=== PATIENT | female | born 1940 | race Caucasian/White ===

== ENCOUNTER 2016-06-26 03:49 | Inpatient (IN) ==
--- NOTE | 2016-06-25 14:53 | EKG Report ---
Test Performed on : 06/25/2016 2:36:13 PM Test Reason : PAT Blood Pressure : / mmHG Vent. Rate : 058 BPM Atrial Rate : 058 BPM P-R Int : 152 ms QRS Dur : 092 ms QT Int : 478 ms P-R-T Axes : 035 053 055 degrees QTc Int : 469 ms Sinus bradycardia. Otherwise normal ECG When compared with ECG of 08-FEB-2015 07:28, QRS duration has increased Confirmed by Lilia HERRERA, Torres Escalera ([id number]) on 06/26/2016 3:18:53 PM
[2016-06-25 15:08] LABS: HEMATOCRIT 38.4 % (37.0-47.0); HEMOGLOBIN 12.8 g/dL (12.0-16.0); MCH 36.9 PG (27-31); MCHC 33.3 g/dL (33-37); MCV 110.7 FL (81-99); MPV 9.7 FL (7.4-10.4); RBC 3.47 XMIL (4.2-5.4)
[2016-06-25 15:20] LABS: AGAP 11; BUN 14 mg/dL (8-22); CALCIUM 9.2 mg/dL (8.8-10.2); CHLORIDE 103 mmol/L (98-107); COSMO 276; POTASSIUM 4.4 mmol/L (3.5-5.1); SODIUM 138 mmol/L (136-145); TCO2 24 mmol/L (25-35)
[2016-06-26] MEDS ORDERED: LR 1,000 ML ONE (06:04)
[2016-06-26] MEDS ORDERED: KEFZOL 1 GM/D5W 1 GM/50 ML IVPB ONE (06:04)
[2016-06-26] MEDS ORDERED: HEPARIN ONE (06:34)
[2016-06-26] MEDS ORDERED: MARCAINE 0.25% PF/EPI 1:200,000 ONE (06:34)
[2016-06-26] MEDS ORDERED: NS 1,000 ML ONE ×3 (06:34→09:41)
[2016-06-26] MEDS ORDERED: KEFZOL ONE (06:34)
[2016-06-26] MEDS ORDERED: MORPHINE ONE ×2 (09:15→09:41)
[2016-06-26] MEDS ORDERED: DIPRIVAN 1% ONE (09:16)
[2016-06-26] MEDS ORDERED: NEOSTIGMINE ONE (09:19)
[2016-06-26] MEDS ORDERED: ATROPINE ONE (09:20)
[2016-06-26] MEDS ORDERED: ZOFRAN ONE (09:20)
[2016-06-26] MEDS ORDERED: NORCURON ONE (09:20)
[2016-06-26] MEDS ORDERED: EPHEDRINE ONE (09:20)
[2016-06-26] MEDS ORDERED: NEO-SYNEPHRINE ONE (09:20)
[2016-06-26] MEDS ORDERED: XYLOCAINE-MPF 2% ONE (09:21)
[2016-06-26] MEDS ORDERED: QUELICIN (DOSE) ONE (09:21)
[2016-06-26] MEDS ORDERED: DECADRON ONE (09:21)
[2016-06-26] MEDS ORDERED: NS 250 ML ONE (09:21)
[2016-06-26 09:49] LABS: URINE MICRO REVIEW NEEDED? NO; URINE SOURCE CATH
[2016-06-26 10:08] LABS: BILIRUBIN URINE NEGATIVE (NEGATIVE); BLOOD URINE NEGATIVE (NEGATIVE); COLOR STRAW; GLUCOSE URINE NEGATIVE (NEGATIVE); LEUKOCYTES URINE NEGATIVE (NEGATIVE); NITRITE URINE NEGATIVE (NEGATIVE); PH URINE 5.5; PROTEIN URINE NEGATIVE (NEGATIVE); SP GRAVITY URINE 1.005; TURBIDITY URINE CLEAR (CLEAR); UROBILINOGEN URINE NORMAL (NORMAL)
[2016-06-26 10:09] LABS: UR EPITHELIAL CELLS <10 /HPF (<10); URINE BACTERIA NEGATIVE /HPF; URINE RBC <10 /HPF (<10); URINE WBC <10 /HPF (<10)
[2016-06-26] MEDS ORDERED: DEMEROL ONE (10:28)
--- NOTE | 2016-06-26 11:23 | OPERATIVE NOTE ---
PROCEDURE DATE: 06/26/2016 DATE OF SURGERY: 06/26/2016. PROCEDURES PERFORMED: 1. Right femoral artery access with ultrasound guidance. 2. Percutaneous right common iliac balloon angioplasty and stent using an 8 x 40 Smart Control stent. 3. Open femoral-femoral graft revision with balloon angioplasty (9 x 40) times two. SURGEON: Cody Guan MD. REPORTING PROCESS CONSULTANT: Negro Arce RN. PREOPERATIVE DIAGNOSES: 1. Rest pain, left lower extremity. 2. Femoral-femoral graft stenosis. 3. Right common iliac artery stenosis. INDICATIONS: A 76-year-old with severe peripheral vascular disease of the left leg, rest pain. She has evidence of a right common iliac stenosis and serial femoral-femoral graft stenoses. DESCRIPTION OF PROCEDURE: Satisfactory general endotracheal anesthesia achieved. The abdomen and legs were prepped and draped in a sterile fashion. We used an ultrasound to identify the right femoral artery. We used a Seldinger technique, passed a Glidewire followed by a 6-Tunisian sheath up the [place] artery. With some manipulation, we were able to traverse the right common iliac stenosis, however it was with some difficulty. When we got into the [place] aorta, we shot a retrograde arteriogram showing a severe stenosis at the takeoff of the right common iliac. The left common iliac is occluded. So, we used a 7 x 2 balloon to pre dilate the severe stenosis. After doing that, it was improved, but absolutely not normal. So, we chose an 8 x 40 Smart Control stent and laid it across the stenosis. We then post dilated that with a 9 x 40 balloon. This significantly improved the stenosis at the takeoff of the right common iliac. We then attempted to pull our sheath back in order to try to gain access to the femoral-femoral graft, but we could not do that due to the proximity of the end of the sheath to the takeoff of the fem-fem graft. So, we aborted further attempts at that. We made a vertical incision, dissected down to where the our sheath had been into the artery, and it turned out it was into the takeoff of the profunda. We closed that with a single 5-0 Prolene lnebav-bo-lhmff stitch. We identified the takeoff of the femoral-femoral graft and directly accessed it with a needle and then passed a Glidewire which went across the stenoses. We then chose a 9 x 4 balloon to balloon the stenoses in the femoral-femoral graft. I failed to mention at the beginning of this procedure that we gave the patient 5000 units of heparin. So, we ballooned the stenoses in the femoral-femoral graft and the residual showed resolution of the stenoses in the graft. So, we were quite satisfied with the resolution of the proximal iliac stenosis and then the serial stenoses within the fem-fem graft. We placed a 5-0 Prolene stitch where we had placed the sheath into the graft, and when we pulled the sheath out we closed that with a 5-0 Prolene stitch. Hemostasis was satisfactory. We irrigated the right groin wound with Kefzol-impregnated saline. We then closed the subcutaneous tissue with a running 2-0 Polysorb. We placed 3-0 Polysorbs in the subcutaneous tissue as a second layer and then closed the skin with a 4-0 Polysorb subcuticular stitch. We did anesthetize the skin with 0.25 Marcaine with epinephrine. She tolerated it well, was sent to the recovery room in satisfactory condition. cc: Cody Guan MD
[2016-06-26] MEDS ORDERED: ZOFRAN IV PRN (14:07)
[2016-06-26] MEDS: MORPHINE IV PRN ×3 (14:42→23:39)
[2016-06-26] MEDS: NS 1,000 ML IV SCH (14:43)
[2016-06-26] MEDS ORDERED: KEFZOL 1 GM/D5W 1 GM/50 ML IVPB IV ONE (16:22)
[2016-06-26] MEDS ORDERED: SEROQUEL PO SCH (21:00)
[2016-06-26] MEDS ORDERED: TENORMIN PO SCH (21:00)
[2016-06-26] MEDS: NEURONTIN PO SCH (21:01)
[2016-06-26] MEDS: NORCO-10 PO PRN (21:02)
[2016-06-26] MEDS: PATIENT'S OWN MED PO SCH (21:03)
[2016-06-26] MEDS: PERIDEX MT SCH (21:03)
[2016-06-27] MEDS: NS 1,000 ML IV SCH (03:51)
[2016-06-27] MEDS: MORPHINE IV PRN ×2 (03:53→08:49)
[2016-06-27 05:40] LABS: BASO% 0.2 % (0.0-0.8); EOS# 0.01 X1000 (0.0-0.7); EOS% 0.2 % (0.0-10.0); HEMATOCRIT 25.3 % (37.0-47.0); HEMOGLOBIN 7.9 g/dL (12.0-16.0); LYMPH# 0.96 X1000 (1.2-3.4); LYMPH% 19.6 % (20.5-51.1); MCH 35.9 PG (27-31); MCHC 31.2 g/dL (33-37); MONO# 0.56 X1000 (0.11-0.59); MONO% 11.4 % (1.7-9.3); MPV 9.5 FL (7.4-10.4); NEUT% 68.6 % (42.2-75.2); PLT 137 X1000 (130-400)
[2016-06-27 05:57] LABS: AGAP 9; BUN 13 mg/dL (8-22); CALCIUM 7.6 mg/dL (8.8-10.2); CHLORIDE 108 mmol/L (98-107); COSMO 280; SODIUM 140 mmol/L (136-145); TCO2 23 mmol/L (25-35)
[2016-06-27] MEDS ORDERED: NS 1,000 ML IV SCH (07:05)
[2016-06-27 07:08] LABS: MANUAL DIFF NEEDED? NO
[2016-06-27] MEDS: PATIENT'S OWN MED PO SCH (08:42)
[2016-06-27] MEDS: PERIDEX MT SCH (08:42)
[2016-06-27] MEDS: NEURONTIN PO SCH (08:43)
[2016-06-27] MEDS ORDERED: IMURAN PO SCH (09:00)
[2016-06-27] MEDS ORDERED: FERROUS SULFATE PO SCH (09:00)
[2016-06-27] MEDS: NORCO-10 PO PRN (14:02)
[2016-06-27 15:45] VITALS: BP 106/54
== END 2016-06-27 16:43 | disposition home or self-care (01) ==
LOC: SURHOLD 03:49 → 4N 14:06
PROVIDERS: ADMIT Surgery; ATTEND Surgery

== ENCOUNTER 2019-01-06 10:53 | Inpatient (IN) ==
--- NOTE | 2019-01-01 14:38 | EKG Report ---
Test Performed on : 01/01/2019 2:33:17 PM Test Reason : PAT Blood Pressure : / mmHG Vent. Rate : 091 BPM Atrial Rate : 093 BPM P-R Int : 000 ms QRS Dur : 072 ms QT Int : 376 ms P-R-T Axes : 000 036 083 degrees QTc Int : 462 ms Accelerated Junctional rhythm. Minimal voltage criteria for LVH, may be normal variant Abnormal ECG When compared with ECG of 17-DEC-2017 14:28, Junctional rhythm. has replaced Sinus rhythm. Criteria for Septal infarct are no longer present Unconfirmed Result
[2019-01-01 14:55] LABS: BASO# 0.03 X1000 (0.0-0.2); BASO% 0.4 % (0.0-0.8); EOS# 0.21 X1000 (0.0-0.7); EOS% 2.6 % (0.0-10.0); HEMOGLOBIN 14.2 g/dL (12.0-16.0); IMM GRAN# 0.06 X1000 (0.0-0.04); IMM GRAN% 0.7 % (0.0-0.5); LYMPH# 0.73 X1000 (1.2-3.4); MCH 30.7 PG (27-31); MCHC 30.9 g/dL (33-37); MCV 99.6 FL (81-99); MONO# 0.67 X1000 (0.11-0.59); MONO% 8.2 % (1.7-9.3); MPV 9.4 FL (7.4-10.4); NEUT# 6.45 X1000 (1.4-6.5); NEUT% 79.1 % (42.2-75.2); PLT 246 X1000 (130-400); RBC 4.62 XMIL (4.2-5.4); RDW 15.6 % (11.5-14.5); WBC 8.15 X1000 (4.8-10.8)
[2019-01-01 15:10] LABS: CALCIUM 9.3 mg/dL (8.8-10.2); POTASSIUM 4.7 mmol/L (3.5-5.1)
[2019-01-06] MEDS ORDERED: XYLOCAINE-MPF 2% ONE (11:07)
[2019-01-06] MEDS ORDERED: DIPRIVAN 1% ONE (11:07)
[2019-01-06] MEDS ORDERED: ZOFRAN ONE (11:07)
[2019-01-06] MEDS ORDERED: PEPCID ONE (11:29)
[2019-01-06] MEDS ORDERED: KEFZOL 1 GM/D5W 1 GM/50 ML IVPB ONE (11:29)
[2019-01-06] MEDS ORDERED: REGLAN ONE (11:29)
[2019-01-06] MEDS ORDERED: LR 1,000 ML ONE (11:29)
[2019-01-06] MEDS ORDERED: HEPARIN ONE ×2 (12:28)
[2019-01-06] MEDS ORDERED: NS 2,000 ML ONE (12:29)
[2019-01-06] MEDS ORDERED: DECADRON ONE (12:50)
[2019-01-06] MEDS ORDERED: NEO-SYNEPHRINE ONE (12:59)
[2019-01-06] MEDS ORDERED: EPHEDRINE ONE (13:13)
[2019-01-06] MEDS ORDERED: HEPARIN (DOSE) ONE (13:40)
[2019-01-06] MEDS ORDERED: KEFZOL ONE (13:50)
[2019-01-06] MEDS ORDERED: NS 500 ML ONE ×2 (13:50→16:23)
[2019-01-06] MEDS ORDERED: QUELICIN (DOSE) ONE (14:04)
[2019-01-06] MEDS ORDERED: ALBUMIN 25% IV ONE (14:15)
[2019-01-06] MEDS ORDERED: OFIRMEV 1000 MG/ISOTONIC SOLN 1,000 MG/100 ML BOTTLE ONE (14:43)
[2019-01-06] MEDS ORDERED: MARCAINE 0.5% ONE (14:53)
[2019-01-06] MEDS ORDERED: NS 1,000 ML ONE (15:19)
[2019-01-06] MEDS ORDERED: ZOFRAN IV PRN (18:06)
[2019-01-06] MEDS ORDERED: DILAUDID IV PRN (18:06)
[2019-01-06] MEDS: NS 1,000 ML IV SCH ×2 (18:16→21:38)
[2019-01-06 19:02] LABS: HEMATOCRIT 45.6 % (37.0-47.0); MCH 30.1 PG (27-31); MCHC 32.9 g/dL (33-37); MCV 91.4 FL (81-99); MPV 9.6 FL (7.4-10.4); RBC 4.99 XMIL (4.2-5.4); RDW 16.8 % (11.5-14.5); WBC 8.79 X1000 (4.8-10.8)
[2019-01-06 19:26] LABS: URINE SOURCE CATH
[2019-01-06 19:32] LABS: BILIRUBIN URINE NEGATIVE (NEGATIVE); BLOOD URINE MODERATE (NEGATIVE); COLOR YELLOW; GLUCOSE URINE NEGATIVE (NEGATIVE); KETONE URINE NEGATIVE (NEGATIVE); LEUKOCYTES URINE NEGATIVE (NEGATIVE); NITRITE URINE NEGATIVE (NEGATIVE); PROTEIN URINE 30 mg/dL (NEGATIVE); TURBIDITY URINE CLEAR (CLEAR); UROBILINOGEN URINE NORMAL (NORMAL)
[2019-01-06 19:43] LABS: UR EPITHELIAL CELLS <10 /HPF (<10); URINE BACTERIA NEGATIVE /HPF; URINE WBC <10 /HPF (<10)
[2019-01-06 19:48] LABS: URINE YEAST NONE SEEN
[2019-01-06] MEDS: PLETAL PO SCH (20:04)
[2019-01-06] MEDS: KEFZOL 1 GM/D5W 1 GM/50 ML IVPB IV SCH (20:05)
[2019-01-06] MEDS: NORCO-10 PO PRN (20:05)
--- NOTE | 2019-01-06 22:05 | OPERATIVE NOTE ---
PROCEDURE DATE: 01/06/2019 PROCEDURE PERFORMED: 1. Left lower extremity arteriogram via femoral-femoral percutaneous access, with ultrasound guidance. 2. Open left common femoral to superficial femoral interposition bypass graft. SURGEON: Cody Guan MD. PENSION ADMINISTRATOR: Dimple. PREOPERATIVE DIAGNOSIS: Left foot rest ischemia. POSTOPERATIVE DIAGNOSIS: Left foot rest ischemia with occluded left proximal superficial femoral artery. DESCRIPTION OF PROCEDURE: Satisfactory general anesthesia was achieved. The right groin, lower abdomen, left groin, and left leg were prepped and draped in a sterile fashion. We first attempted access to the fem-fem graft near the left common femoral anastomosis, but we lost access, developed a hematoma, and aborted further attempts there. We then went toward the right on the femoral-femoral graft and under ultrasound guidance, accessed it and passed a 6-Bulgarian sheath. We then shot a femoral-femoral arteriogram. This showed occlusion of the proximal left SFA. There was outflow via the deep femoral. There was collateralization to the SFA with retrograde filling back to about 3 cm from the tip of the femoral-femoral bypass anastomosis. We then attempted access distally in the SFA, but we could not stay inside the artery, in hopes that we could go retrograde up the artery and across the occlusion, but we never could gain access in the distal SFA due to the calcification. So, we then decided to cut down on the artery. Where we had made a puncture in the mid SFA, we placed a 6-0 Prolene stitch to close the hole in the artery there. We evacuated the hematoma and then exposed the artery all the way up to the anastomosis where the fem-fem graft anastomosed. We then gave the patient 5000 units of heparin. We at first thought we could use a bovine patch, but after opening the artery, it became evident we would have to use an interposition graft. After the heparin had circulated for 5 minutes, we clamped the fem- fem graft. We then incised the superficial femoral artery and extended it with the Agrcia scissors. We came all the way back to the toe of the fem-fem graft. We extended our incision distally until we reached what I felt to be a fairly soft portion of the SFA, and so we obtained a 6 mm PTFE graft to use it as an interposition. We used a CV5 stitch to sew the graft to the toe of the femoral-femoral graft, right at the anastomosis to the common femoral. We flushed the graft and hemostasis around the graft was satisfactory. We then cut the graft to the appropriate length to where we had finished opening the SFA, and once again constructed this anastomosis to the artery using a CV6 Darien suture. Flow was then established. A couple of extra stitches were used to achieve complete hemostasis around the anastomoses. We did use some Ultrafoam as well. I then shot a completion arteriogram through the fem-fem percutaneous access, and this showed flow down the new interposition graft, down the SFA, through the popliteal, and had 2 vessel [address] all the way to the foot. We did not feel that any further intervention was indicated. We irrigated out the wound with Kefzol impregnated saline. We closed the muscle over the graft with a running 2-0 Polysorb stitch, loosely approximating the muscle, and then used interrupted 3-0 Polysorb to the subcutaneous tissue. We closed the skin with maximilian. I attempted to use the Mynx on the fem- fem percutaneous access, but it did not function well, so we simply removed the sheath and held pressure for 5 minutes. This provided adequate hemostasis at the puncture site in the femoral- femoral graft. A pressure dressing was applied there. A regular island dressing was applied over the left femoral incision. She tolerated the procedure satisfactorily. Estimated blood loss was 900 mL. She was sent to the recovery room in stable condition. cc: Cody Guan MD
[2019-01-07] MEDS: NORCO-10 PO PRN ×3 (00:17→20:29)
[2019-01-07] MEDS: KEFZOL 1 GM/D5W 1 GM/50 ML IVPB IV SCH ×3 (04:02→20:30)
[2019-01-07] MEDS: NS 1,000 ML IV SCH ×2 (05:08→17:51)
[2019-01-07 06:28] LABS: CALCIUM 8.2 mg/dL (8.8-10.2); CREATININE 1.1 mg/dL (0.5-0.9); POTASSIUM 4.9 mmol/L (3.5-5.1)
[2019-01-07 07:47] LABS: HEMATOCRIT 37.2 % (37.0-47.0); HEMOGLOBIN 12.5 g/dL (12.0-16.0); MCH 30.2 PG (27-31); MCHC 33.6 g/dL (33-37); MCV 89.9 FL (81-99); MPV 9.5 FL (7.4-10.4); RBC 4.14 XMIL (4.2-5.4); WBC 9.13 X1000 (4.8-10.8)
[2019-01-07] MEDS: PLETAL PO SCH ×2 (08:47→20:29)
[2019-01-07] MEDS: TOPROL XL PO SCH (08:48)
[2019-01-07] MEDS: IMURAN PO SCH (08:49)
[2019-01-07] MEDS: XYLOCAINE 5% OINT TOP PRN ×2 (08:52→20:30)
--- NOTE | 2019-01-07 09:05 | GENERAL SURGERY PROGRESS NOTE ---
DATE: 01/07/2019 Ms. Navarrete is doing extremely well. She says she can feel her foot better today, it is not numb like it has been. She can tell it is getting blood. She is afebrile with heart rate 85, blood pressure 114/70. Her bandage is taken off. There is no evidence of hematoma and had a little oozing from the skin edge of her incision. Her wound was cleaned with peroxide, cleaned with alcohol, and then redressing in a sterile fashion. Today, her white count is 9000, hemoglobin 12.5, hematocrit 37. BUN 23, creatinine 1.1. I am pleased with her progress. Will keep her on IV antibiotics today and hopefully we can send her home tomorrow if all is well and there is no evidence of further bleeding. cc: Cody Guan MD
[2019-01-08] MEDS: NORCO-10 PO PRN (00:03)
[2019-01-08] MEDS: NS 1,000 ML IV SCH ×2 (03:18→12:31)
[2019-01-08] MEDS: KEFZOL 1 GM/D5W 1 GM/50 ML IVPB IV SCH ×2 (03:47→12:47)
[2019-01-08 08:40] LABS: BASO# 0.01 X1000 (0.0-0.2); BASO% 0.2 % (0.0-0.8); EOS# 0.26 X1000 (0.0-0.7); IMM GRAN# 0.05 X1000 (0.0-0.04); IMM GRAN% 0.8 % (0.0-0.5); LYMPH# 1.04 X1000 (1.2-3.4); MCH 30.4 PG (27-31); MCHC 32.4 g/dL (33-37); MCV 93.7 FL (81-99); MONO# 0.65 X1000 (0.11-0.59); MPV 9.7 FL (7.4-10.4); NEUT# 4.47 X1000 (1.4-6.5); PLT 150 X1000 (130-400); RBC 3.95 XMIL (4.2-5.4); WBC 6.48 X1000 (4.8-10.8)
[2019-01-08 08:43] LABS: AGAP 11; BUN 18 mg/dL (8-22); CALCIUM 8.3 mg/dL (8.8-10.2); CHLORIDE 106 mmol/L (98-107); COSMO 273; CREATININE 0.9 mg/dL (0.5-0.9); ESTIMATED GFR > 60; GLUCOSE 85 mg/dL (70-104); POTASSIUM 4.6 mmol/L (3.5-5.1); SODIUM 136 mmol/L (136-145); TCO2 19 mmol/L (25-35)
[2019-01-08] MEDS: PLETAL PO SCH (08:56)
[2019-01-08] MEDS: TOPROL XL PO SCH (08:56)
[2019-01-08] MEDS: IMURAN PO SCH (08:56)
[2019-01-08 12:06] VITALS: BP 136/95
--- NOTE | 2019-01-08 21:59 | GENERAL SURGERY PROGRESS NOTE ---
DATE: 01/08/2019 It is 2:23 in the afternoon. Ms. Navarrete is doing well. Her foot remains warm. Bandage is dry. She is ready to go home. She will resume her usual medications. She will return to see me next week for wound inspection. I will give her something for pain for her toe and incision. cc: Cody Guan MD
--- NOTE | 2019-01-24 00:06 | DISCHARGE SUMMARY ---
DATE OF ADMISSION: 01/06/2019 DATE OF DISCHARGE: 01/08/2019 PRIMARY DISCHARGE DIAGNOSES: 1. Occluded proximal superficial femoral artery (SFA) with rest pain in the left foot. 2. Ulceration of the left 5th toe. PRIMARY PROCEDURE: A left lower extremity arteriogram with a femoral-femoral access and then an open left common jxrgsyk-wj-hytipgttcrt femoral interposition bypass graft. Ms. Navarrete was suffering from an ischemic ulceration of her left 5th toe with rest pain. The plan was to see if we could open up her SFA to improve distal flow. The operation was on the and required an open interposition graft between the SFA and the distal SFA. Postoperatively, she did generally well. She could feel that her foot was better on the 07 of January. Her wound continued to do satisfactorily and, by the , she was up. Her wound felt better. Her leg felt better so it was felt she could be discharged home. She will resume her usual medications and return to see me in a week. cc: Cody Guan MD
== END 2019-01-08 15:42 | disposition home health service (06) | DRG 253 ==
LOC: 4N 10:53 → OR 10:53 → OBSVTOIN 13:48 → 2N 16:43
PROVIDERS: ADMIT Surgery; ATTEND Surgery

== ENCOUNTER 2019-04-02 19:20 | Inpatient (IN) ==
[2019-04-02] MEDS ORDERED: ASPIRIN PO ONE (19:36)
[2019-04-02] MEDS ORDERED: ASPIRIN PR ONE (19:36)
--- NOTE | 2019-04-02 20:07 | EKG Report ---
Test Performed on : 04/02/2019 7:42:25 PM Test Reason : SOB Blood Pressure : / mmHG Vent. Rate : 169 BPM Atrial Rate : 174 BPM P-R Int : 096 ms QRS Dur : 062 ms QT Int : 282 ms P-R-T Axes : 081 024 108 degrees QTc Int : 472 ms Sinus tachycardia. with short [place] with premature supraventricular complexes. Left ventricular hypertrophy with repolarization abnormality Abnormal ECG When compared with ECG of 01-JAN-2019 14:33, Sinus rhythm. has replaced Junctional rhythm. Vent. rate has increased BY [address] now depressed in Lateral leads Unconfirmed Result
[2019-04-02] MEDS ORDERED: ADENOCARD IV ONE (20:24)
[2019-04-02] MEDS ORDERED: CARDIZEM IV ONE ×2 (20:28→20:54)
[2019-04-02 20:34] LABS: INR 0.99; PROTIME 13.2 Seconds (11.0-16.0)
[2019-04-02] MEDS ORDERED: CARDIZEM ONE (20:34)
[2019-04-02 20:35] LABS: PTT 25.8 Seconds (22.3-41.8)
[2019-04-02 20:46] LABS: AGAP 18; ALB/GLOB RATIO 1.6; ALBUMIN 4.3 g/dL (3.5-5.0); ALKALINE PHOSPHATASE 55 U/L (32-104); BUN 16 mg/dL (8-22); CALCIUM 10.5 mg/dL (8.8-10.2); CHLORIDE 96 mmol/L (98-107); CK PROFILE 87 U/L (24-173); COSMO 276; CREATININE 0.9 mg/dL (0.5-0.9); ESTIMATED GFR > 60; GLUCOSE 112 mg/dL (70-104); GOT 19 U/L (10-30); GPT 9 U/L (10-36); POTASSIUM 5.4 mmol/L (3.5-5.1); SODIUM 137 mmol/L (136-145); TCO2 23 mmol/L (25-35); TOTAL BILIRUBIN 0.64 mg/dL (0.20-1.00)
[2019-04-02 20:57] LABS: BASO# 0.01 X1000 (0.0-0.2); BASO% 0.1 % (0.0-0.8); EOS# 0.01 X1000 (0.0-0.7); EOS% 0.1 % (0.0-10.0); HEMATOCRIT 48.8 % (37.0-47.0); HEMOGLOBIN 15.4 g/dL (12.0-16.0); IMM GRAN# 0.02 X1000 (0.0-0.04); IMM GRAN% 0.2 % (0.0-0.5); LYMPH# 0.27 X1000 (1.2-3.4); LYMPH% 2.7 % (20.5-51.1); MCH 31.8 PG (27-31); MCHC 31.6 g/dL (33-37); MCV 100.6 FL (81-99); MONO# 0.59 X1000 (0.11-0.59); MONO% 5.8 % (1.7-9.3); MPV 10.1 FL (7.4-10.4); NEUT# 9.19 X1000 (1.4-6.5); NEUT% 91.1 % (42.2-75.2); PLT 218 X1000 (130-400); RBC 4.85 XMIL (4.2-5.4); RDW 14.9 % (11.5-14.5); WBC 10.09 X1000 (4.8-10.8)
[2019-04-02] MEDS ORDERED: NS 250 ML IV ONE (21:04)
--- NOTE | 2019-04-02 21:05 | Diag Imaging Result Doc PS360 ---
EXAM: CHEST-PORTABLE 04/02/2019 HISTORY: sob TECHNIQUE: Erect AP portable upright at 2056 COMMENT: There is increased pulmonary vascularity. There is increased interstitial markings which appears slightly worse than on 03/09/2019. IMPRESSION: Pulmonary edema. Electronically signed by Sahil Villalba 04/02/2019 9:03 PM
[2019-04-02] MEDS ORDERED: NS 250 ML ONE (21:09)
--- NOTE | 2019-04-02 21:12 | PROVIDER DOCUMENTATION ---
HPI-Respiratory General - General Chief Complaint: Shortness of Breath Stated Complaint: COPD, TROUBLE BREATHING Time Seen by Provider: 04/02/19 20:06 Source: patient Allergies/Adverse Reactions: Patient Allergies Allergy/AdvReac Type Severity Reaction Status Date / Time levofloxacin [From Levaquin] Allergy Unknown Verified 01/06/19 11:39 Sulfa (Sulfonamide Allergy Unknown Verified 01/06/19 11:26 Antibiotics) codeine AdvReac NAUSEA Verified 01/06/19 11:26 Home Medications: Home Medication List Medication Instructions Recorded Confirmed Last Taken Type Azathioprine 1 tab PO DAILY 06/25/16 01/06/19 01/06/19 09:00 History Cilostazol [Pletal] 25 mg PO BID 07/19/16 01/06/19 01/06/19 09:00 History Metoprolol Succinate E.r. [Toprol 25 mg PO DAILY 01/01/19 01/06/19 01/06/19 09:00 History Xl] Lidocaine 5% Oint [Xylocaine 5% 1 dose TOP QHS 01/06/19 01/06/19 Unknown History Oint] Hydrocodone/APAP 10 mg/325 mg 1 ea PO Q4H PRN PRN #14 tab 01/08/19 Unknown Rx [Denhoff-10] - History of Present Illness-Resp Nature of Presenting Problem: Patient with a h/o copd, reports sob today after having EGD procedure around 11am . Did her nebulizer at home prior to coming to the ER. She is tachycardia but reports mild improving in sob with mild chest pain. No N/V or diaphoresis Quality of Pain: reports: none Onset/Duration: reports: 1-3 hours ago Timing: reports: still present Exposure: reports: unknown cause Cough Quality/Degree: reports: no cough Current Respiratory Medication Therapy: Initiated A/A nebulizer Associated Symptoms: reports: chest pain/soreness Review of Systems - Adult - REVIEW OF SYSTEMS - ADULT Constitutional: reports: no symptoms reported Eyes: reports: no symptoms reported Ears, Nose, Mouth & Throat: reports: no symptoms reported Cardiovascular: reports: no symptoms reported Respiratory: reports: see HPI Gastrointestinal: reports: no symptoms reported Genitourinary: reports: no symptoms reported Musculoskeletal: reports: no symptoms reported Integumentary: reports: no symptoms reported Neurological: reports: no symptoms reported Psychiatric: reports: no symptoms reported Endocrine: reports: no symptoms reported Hematologic/Lymphatic: reports: no symptoms reported Allergic/Immunologic: reports: no symptoms reported All Other Systems: Reviewed and Negative Past History - Adult - PAST MEDICAL HISTORY-ADULT Review of Records: reports: Nursing Assessment Review, Medications Reviewed, Social history reviewed & non-contributory. Major Childhood Illnesses: reports: denies history Cardiovascular: reports: A-Fib, HTN Respiratory: reports: COPD, other (pulmonary edema) Gastrointestinal: reports: ulcer Obstetrical/Gynecological: reports: denies history Genitourinary: reports: denies history Musculoskeletal: reports: denies history Neurological: reports: denies history Psychiatric: reports: denies history Endocrine/Immune: reports: denies history Other Conditions: reports: denies history - PRIOR SURGERIES/PROCEDURES Surgical/Procedure History: reports: recent surgery (total hip replacement 4 weeks ago), hysterectomy, bowel surgery (Ulcer surgery), orthopedic (extremity) (right rotator cuff ), joint replacement (right total hip replacement), other (right carotid, fem-pop) - IMMUNIZATION STATUS Childhood Immunizations: See Nurse Assessment Flu Vaccine: See Nurse Assessment - FAMILY HISTORY Family History: reviewed, not pertinent Physical Exam-General - PHYSICAL EXAM-ADULT Initial Vital Signs Reviewed: Yes - CONSTITUTIONAL General Appearance: appears well, alert, moderate distress - EYES Eyes: PERRL/EOMI - HEAD, EARS, NOSE, MOUTH & THROAT HENMT: normocephalic/atraumatic, moist mucous membranes - NECK Neck: non-tender, full range of motion, supple - RESPIRATORY Respiratory: chest non-tender, other (decreased air entry) - CARDIOVASCULAR Cardiovascular: irregularly irregular (but very faint) - GASTROINTESTINAL (ABDOMEN) Abdominal Exam: normal bowel sounds, non tender, soft - MUSCULOSKELETAL Back Exam: normal inspection, no CVA tenderness Extremity: non-tender, no pedal edema - SKIN Integumentary: normal color - NEUROLOGIC Neurologic: in flight technician II-XII nml as tested - PSYCHIATRIC Psych/Mental Status: oriented x 3 Progress - PLAN OF CARE/RESULTS Progress/Plan/Lab Results: Vital Signs - 8 hr 04/02/19 19:32 Temperature 97.4 F L Pulse Rate 88 Respiratory Rate 18 Blood Pressure 121/72 O2 Sat by Pulse Oximetry 96 Laboratory Results - last 24 hr 04/02/19 04/02/19 04/02/19 20:04 20:04 20:04 WBC 10.09 RBC 4.85 Hgb 15.4 Hct 48.8 H MCV 100.6 H MCH 31.8 H MCHC 31.6 L RDW Std Deviation 14.9 H Plt Count 218 MPV 10.1 Immature Gran % (Auto) 0.2 Neut % (Auto) 91.1 H Lymph % (Auto) 2.7 L [place] % (Auto) 5.8 Eos % (Auto) 0.1 Baso % (Auto) 0.1 Immature Gran # (Auto) 0.02 Neut # (Auto) 9.19 H Lymph # (Auto) 0.27 L [place] # (Auto) 0.59 Eos # (Auto) 0.01 Baso # (Auto) 0.01 PT INR PTT (Actin FS) Sodium 137 Potassium 5.4 H Chloride 96 L Carbon Dioxide 23 L Anion Gap 18 BUN 16 Creatinine 0.9 Estimated GFR/1.73 m2 > 60 BUN/Creatinine Ratio 18 Glucose 112 H Calculated Osmolality 276 Calcium 10.5 H Total Bilirubin 0.64 AST 19 ALT 9 L Alkaline Phosphatase 55 Creatine Kinase 87 Troponin T High Sens Wsi-X-Hlkpvllldye Pept 6759 H Total Protein 7.0 Albumin 4.3 Globulin 2.7 Albumin/Globulin Ratio 1.6 04/02/19 04/02/19 20:04 20:04 WBC RBC Hgb Hct MCV MCH MCHC RDW Std Deviation Plt Count MPV Immature Gran % (Auto) Neut % (Auto) Lymph % (Auto) [place] % (Auto) Eos % (Auto) Baso % (Auto) Immature Gran # (Auto) Neut # (Auto) Lymph # (Auto) [place] # (Auto) Eos # (Auto) Baso # (Auto) PT 13.2 INR 0.99 PTT (Actin FS) 25.8 Sodium Potassium Chloride Carbon Dioxide Anion Gap BUN Creatinine Estimated GFR/1.73 m2 BUN/Creatinine Ratio Glucose Calculated Osmolality Calcium Total Bilirubin AST ALT Alkaline Phosphatase Creatine Kinase Troponin T High Sens 41 H Lel-N-Brmuqroolai Pept Total Protein Albumin Globulin Albumin/Globulin Ratio Orders Category Date Time Status Cardiac Monitoring DIRECTED Care 04/02/19 19:37 Active Oxygen Therapy- ED Nursing DIRECTED Care 04/02/19 19:37 Active Saline Loc NOW Care 04/02/19 19:37 Active CHEST-PORTABLE [RAD] Stat Exams 04/02/19 20:52 Completed CBC WITH ELECTRONIC DIFF [HEME] Stat Lab 04/02/19 20:04 Completed CK PROFILE [SP CHEM] Stat Lab 04/02/19 20:04 Completed COMPREHENSIVE METABOLIC PANEL [CHEM] Stat Lab 04/02/19 20:04 Completed PRO B-NATRIURETIC PEPTIDE Stat Lab 04/02/19 20:04 Completed PROTIME WITH INR [COAG] Stat Lab 04/02/19 20:04 Completed PTT [COAG] Stat Lab 04/02/19 20:04 Completed TROPONIN T HIGH SENSITIVITY Stat Lab 04/02/19 20:04 Completed TSH Stat Lab 04/02/19 21:04 Uncollected 0.9% Sodium Chloride Inj [Ns] 250 ml Med 04/02/19 21:09 Discontinued .ROUTE As directed 0.9% Sodium Chloride Inj [Ns] 250 ml Med 04/02/19 21:04 Discontinued IV Wide Open mls/hr 0.9% Sodium Chloride Inj [Ns] 500 ml Med 04/02/19 21:15 Discontinued IV Wide Open mls/hr Adenosine [Adenocard] Med 04/02/19 20:24 Discontinued 6 mg IV NOW ONE Aspirin Med 04/02/19 19:36 Discontinued 300 mg MT NOW ONE Aspirin Med 04/02/19 19:36 Discontinued 325 mg PO NOW ONE Diltiazem [Cardizem] Med 04/02/19 20:28 Discontinued 10 mg IV NOW ONE Diltiazem [Cardizem] Med 04/02/19 20:54 Discontinued 15 mg IV NOW ONE Diltiazem [Cardizem] Med 04/02/19 20:34 Discontinued 25 mg .ROUTE .STK-MED ONE Furosemide [Lasix] Med 04/02/19 21:22 Discontinued 40 mg IV NOW ONE Metoprolol [Lopressor] Med 04/02/19 21:24 Discontinued 5 mg .ROUTE .STK-MED ONE Metoprolol [Lopressor] Med 04/02/19 21:18 Discontinued 5 mg IV NOW ONE CP/SOB/Palp >45 yrs of Age Stat Oth 04/02/19 19:36 Ordered EKG [EKG] Stat Ther 04/02/19 19:37 Draft Result Diagrams: 04/02/19 20:04 04/02/19 20:04 - REASSESSMENT Reassessment #1 Time Reassessed: 21:12 Status: improving (patient is tachycardic- rate is in 160s to 200. Given IV cardizen 10mg initially, rate came down to the 140s and started going back up again to the 160s. Gave a 2nd dose of 10mg IV, giulia is now in the 80s systolic. Will bolous with NS 250mls while awaiting her labs) - CONSULTS/PCP/HOSPITALIST Notification #1 *Consult/PCP/Hospitalist*: dr Ann Time Discussed: 21:35 Consult Disposition: Admit (Discussed with Supervisor Treating And Pumping Dr Ann. He wants me to give pt digoxin 0.25mg and admit) #2 Consult: Dr Santizo Time Discussed: 21:45 Consult Disposition: Admit (accepts admission. Came to patient bed side. Wants a hold on cardizen as patient is tarchycardia has improved nd has a sbp of 93) Departure - Departure Date of Disposition Decision: 04/02/19 Time of Disposition Decision: 21:49 DIAGNOSIS: COPD exacerbation Acute exacerbation of CHF (congestive heart failure) Qualifiers: Heart failure type: unspecified Qualified Code(s): I50.9 - Heart failure, unspecified Disposition: ADMITTED INPATIENT 09 Certified Medical Emergency: Emergent Condition: Fair Referrals and Follow-Ups: Bel Mancera MD [Primary Care Provider] - - Critical Care Note This patient required my direct & personal management of CC.: No Attestation - Physician/ MEAGAN Attestation Patient care was provided by Advanced Practice Provider:: No The physician spent face to face time with patient:: Yes Advanced Practice Provider documentation review:: Supervising physician onsite and consulted in the evaluation and care of this patient. The physician did have a face to face encounter with the patient.
[2019-04-02] MEDS ORDERED: NS 500 ML IV ONE (21:15)
[2019-04-02] MEDS ORDERED: LOPRESSOR IV ONE (21:18)
[2019-04-02] MEDS ORDERED: LASIX IV ONE (21:22)
[2019-04-02] MEDS ORDERED: LOPRESSOR ONE (21:24)
[2019-04-02] MEDS ORDERED: TYLENOL PO PRN (23:48)
--- NOTE | 2019-04-03 03:06 | HISTORY AND PHYSICAL ---
PRIMARY CARE PHYSICIAN: Dr. Mancera. CHIEF COMPLAINT: Shortness of breath, palpitations. HISTORY OF PRESENTING ILLNESS: A 78-year-old female with a history of atrial fibrillation, COPD, hypertension, who had presented to emergency department with complaint of palpitations, and chest discomfort and shortness of breath that occurred after she had an EGD done earlier today. She states that she was fine after the procedure. However, when she went home she developed palpitations and shortness of breath. She was seen in the ED where she was found to be in atrial fibrillation with rapid ventricular response. She was given IV Cardizem and her rate had improved. Due to her presenting symptoms, she will require admission for further management. At the time of my examination, patient denied any headache, fever, chills, nausea, vomiting, diarrhea, hemoptysis, but complained of shortness of breath and chest discomfort. PAST MEDICAL HISTORY: Includes atrial fibrillation, COPD, hypertension. PAST SURGICAL HISTORY: Hysterectomy, gastric surgery, right hip surgery, left leg surgery, cholecystectomy, cataract surgery. ALLERGIES: No known drug allergies. CURRENT MEDICATIONS: Include azathioprine 50 mg p.o. daily, Pletal 25 mg p.o. b.i.d., [place] 10 mg p.o. q.4 hours, metoprolol 25 mg p.o. daily. SOCIAL HISTORY: She is a former smoker. No history of alcohol or illicit drug use. FAMILY HISTORY: No history of coronary disease. REVIEW OF SYSTEMS: Fourteen point review of systems is as listed in HPI. Other systems negative. PHYSICAL EXAMINATION: GENERAL: Cooperative, friendly female. She is resting more comfortably now. VITAL SIGNS: Temperature 97.4 degrees, pulse 88, respiration 18, blood pressure 121/72. HEENT: Atraumatic, normocephalic. Extraocular movements intact. PERRLA. NECK: No masses. CHEST: Scattered wheezes. CARDIOVASCULAR: Irregular irregular. ABDOMEN: Soft. Positive bowel sounds. EXTREMITIES: No edema. NEUROLOGIC: She is awake, alert, oriented x3. GENITOURINARY: No bladder distention. SKIN: Warm. LABORATORIES AND STUDIES: WBC 10.09, hemoglobin 15.4, hematocrit 48.8, platelets 218,000. Sodium 137, potassium 5.4, chloride 96, CO2 is 23, BUN is 16, creatinine 0.9, glucose 112. ProBNP is 6759. Chest x-ray shows pulmonary edema. ASSESSMENT: This is a 78-year-old female with a history of atrial fibrillation, chronic obstructive pulmonary disease, hypertension, who had presented to emergency department with complaint of palpitations and shortness of breath. She apparently had an EGD done earlier in the day and after she went home she developed palpitations and shortness of breath. She was seen in the ED. She was found to be in atrial fibrillation with rapid ventricular response. She was given IV Cardizem and she will require admission for further management. 1. Atrial fibrillation with rapid ventricular response. 2. Chronic obstructive pulmonary disease. 3. Hypertension. PLAN: 1. We will admit patient to ICU. 2. Continue to monitor patient on telemetry. 3. We will possibly need to restart Cardizem if her rate is not controlled. 4. We will consult Cardiology. 5. We will put patient on supplemental oxygen. 6. We will continue with DuoNebs as needed. 7. We will monitor blood pressure closely. 8. Put patient on DVT prophylaxis with Lovenox and SCD. 9. We will continue to follow, reassess, make further recommendation based on patient's clinical course. cc: MD Angel Santamaria MD
--- NOTE | 2019-04-03 06:59 | EKG Report ---
Test Performed on : 04/02/2019 8:35:18 PM Test Reason : AFIB Blood Pressure : / mmHG Vent. Rate : 150 BPM Atrial Rate : 187 BPM P-R Int : 000 ms QRS Dur : 066 ms QT Int : 322 ms P-R-T Axes : 000 025 076 degrees QTc Int : 508 ms Atrial fibrillation. with rapid ventricular response. Nonspecific ST and T wave abnormality Abnormal ECG When compared with ECG of 02-APR-2019 19:42, (Unconfirmed) Atrial fibrillation. has replaced Sinus rhythm. Unconfirmed Result
[2019-04-03 09:23] LABS: CALCIUM 9.3 mg/dL (8.8-10.2); POTASSIUM 4.4 mmol/L (3.5-5.1)
[2019-04-03] MEDS ORDERED: CARDIZEM 100 MG/NS 100 MG/100 ML IVPB IV SCH (09:30)
[2019-04-03] MEDS: LOVENOX SUBQ SCH (10:01)
[2019-04-03 10:27] LABS: BASO# 0.01 X1000 (0.0-0.2); BASO% 0.1 % (0.0-0.8); EOS# 0.02 X1000 (0.0-0.7); EOS% 0.2 % (0.0-10.0); HEMATOCRIT 41.2 % (37.0-47.0); HEMOGLOBIN 13.2 g/dL (12.0-16.0); IMM GRAN# 0.03 X1000 (0.0-0.04); IMM GRAN% 0.3 % (0.0-0.5); LYMPH# 0.61 X1000 (1.2-3.4); LYMPH% 6.6 % (20.5-51.1); MCH 32.2 PG (27-31); MCV 100.5 FL (81-99); MONO# 0.65 X1000 (0.11-0.59); MPV 9.9 FL (7.4-10.4); NEUT# 7.92 X1000 (1.4-6.5); NEUT% 85.8 % (42.2-75.2); PLT 221 X1000 (130-400); RDW 14.6 % (11.5-14.5); WBC 9.24 X1000 (4.8-10.8)
[2019-04-03 11:04] LABS: BANDS 4 % (0-1); EOS 4 % (1-10); LYMPHS 2 % (21-51); MONO 6 % (1-9); SEGS 84 % (42-75)
[2019-04-03] MEDS: CARDIZEM PO SCH ×2 (14:09→21:22)
--- NOTE | 2019-04-03 14:51 | CARDIOLOGY CONSULTATION ---
DATE: 04/03/2019 CHIEF COMPLAINT ON PRESENTATION: Shortness of breath, palpitations. HISTORY OF PRESENT ILLNESS: Ms Navarrete is a 78-year-old white female with a history of paroxysmal atrial fib followed by Dr. Ann, last visit in June 2018. She was maintained on flecainide at that time. No anticoagulation was being used secondary to a history of GI bleeding. She presented yesterday after having a procedure done at [facility]. It sounded like she had an esophageal dilatation. She later went home and became extremely short of breath. She subsequently presented to the ER and was found to be multifocal atrial tachycardia. She was admitted for further evaluations. Otherwise she reports she has been in her usual state of health. PAST MEDICAL HISTORY: 1. Paroxysmal atrial fib maintained on flecainide as an outpatient as well as aspirin. 2. Hypertension. 3. Hyperlipidemia. 4. Peripheral vascular disease status post femoral/femoral bypass. 5. Carotid artery disease status post right carotid endarterectomy. 6. Severe chronic obstructive pulmonary disease. 7. Gastrointestinal bleed with history of iron deficiency anemia. 8. Chronic pain. SOCIAL HISTORY: Previous smoker. No current alcohol or illicit drugs. FAMILY HISTORY: Significant for coronary disease. REVIEW OF SYSTEMS: A 10 system review of systems is negative except for those mentioned in HPI. PHYSICAL EXAMINATION: Vital Signs: Patient is afebrile. Heart rates have been in the 100s to 110s predominantly. Her blood pressure is 102/73. General: She is in no acute distress. HEENT: Oropharynx moist. Poor dentition. Eye examination: Surfside conjunctivae. White sclerae. Neck: Examination shows no obvious thyromegaly or thyroid tenderness. Cardiovascular: She sounds to be in an irregular rhythm. Her current telemetry demonstrates multifocal atrial tachycardia. She has no lower extremity edema. Chest: Has reduced breath sounds somewhat diffusely. She has no increased work of breathing. Abdomen: Soft, nontender, nondistended. She has no obvious organomegaly. Skin: Warm and dry throughout without any rashes. Neurological: She is moving all extremities well. She has no lateralizing deficits. PERTINENT DATA: White count is 10, hematocrit is 48, platelet count is 218,000. Sodium is 137, potassium 4.4, BUN 19, creatinine is 1.0. She had a troponin of 41. Her proBNP was 6759 on presentation. She had a chest x-ray demonstrating pulmonary edema. ASSESSMENT: Ms. Navarrete is a 78-year-old female with paroxysmal atrial fibrillation. She presented in multifocal atrial tachycardia. PLAN: I will initiate her on diltiazem 30 q. 6 hours. Continue her on the aspirin. Per her previous notes of Dr. Ann she was on flecainide. We will continue that medication for the time being. I have discussed the above findings with her primary care physician. cc: MD Angel Bailey MD
[2019-04-03 16:55] LABS: URINE SOURCE CLEAN CATCH
[2019-04-03 17:04] LABS: BILIRUBIN URINE NEGATIVE (NEGATIVE); BLOOD URINE NEGATIVE (NEGATIVE); COLOR YELLOW; GLUCOSE URINE NEGATIVE (NEGATIVE); KETONE URINE TRACE mg/dL (NEGATIVE); LEUKOCYTES URINE NEGATIVE (NEGATIVE); NITRITE URINE NEGATIVE (NEGATIVE); PH URINE 5.5; PROTEIN URINE TRACE mg/dL (NEGATIVE); SP GRAVITY URINE 1.017; TURBIDITY URINE CLEAR (CLEAR); UROBILINOGEN URINE NORMAL (NORMAL)
[2019-04-03 17:05] LABS: UR EPITHELIAL CELLS <10 /HPF (<10); URINE BACTERIA NEGATIVE /HPF; URINE RBC <10 /HPF (<10); URINE WBC <10 /HPF (<10)
[2019-04-03] MEDS ORDERED: DUONEB (A & A) INH PRN (20:29)
[2019-04-03] MEDS ORDERED: SODIUM CHLORIDE 0.9% INJ SCH (20:30)
[2019-04-03] MEDS ORDERED: NEXIUM IV SCH (20:30)
--- NOTE | 2019-04-03 20:49 | PROGRESS NOTE ---
DATE: 04/03/2019 SUBJECTIVE: A 78-year-old white female basically came in after EGD by Dr. Villalba for dysphagia at [facility]. She went home. She started having breathing problems. She has known history of COPD. Heart rate is erratic and the family brought her to the ER. Patient was admitted last night and had a rapid atrial fibrillation in and out and was evaluated in the ER. And currently she is in sinus in and out. The patient is better. No chest pain. No shortness of breath. The patient was seen in the emergency room as well as in the [facility]. I appreciate Dr. Kenyon's consult. PAST MEDICAL HISTORY: Report reviewed. PAST SURGICAL HISTORY: Reviewed. MEDICINES: Reviewed. ALLERGIES: Sulfa and Levaquin. OBJECTIVE: Temp is 98 degrees, pulse 96, blood pressure is 105/56, 2 L nasal cannula 99%. Elderly female, not in respiratory distress. Malnourished, cachectic.Chest: Bilateral air entry. Heart: Distant heart sounds. Belly: Is soft, nontender. No peripheral edema. LABORATORY DATA: CBC: White cell count 9.3, hematocrit 41, platelets 221,000. Sodium 137, potassium 4.4, chloride 100, BUN 19, creatinine 1.0, glucose 92, calcium 9.3, and proBNP was high. CK was normal. Troponin was slightly high. Urinalysis is clear. EKG on 03/24/2019, atrial fibrillation with questionable MAT with rapid ventricular response. Chest x-ray showed COPD changes. ASSESSMENT AND PLAN: 1. Paroxysmal atrial fibrillation. 2. COPD. 3. Fracture of T12, T11, L1 compression fracture and osteoporosis. 4. History of ulcerative colitis. 5. Other issues are small bowel resection for adhesions, right hip replacement, right carotid endarterectomy, fem-fem bypass graft and plan of care is follow up on normal thyroid function tests. 6. Rate control with Cardizem and started on flecainide. 7. COPD, recently was seen by Dr. Lazo. 8. DVT prophylaxis with Lovenox. 9. GI prophylaxis with IV Nexium. 10. Slowly reconcile home medications. 11. Level of documentation is 30. cc: Angel Mancera MD
[2019-04-03] MEDS: TAMBOCOR PO SCH (21:22)
[2019-04-03] MEDS: SODIUM CHLORIDE 0.9% INJ SCH (21:24)
[2019-04-03] MEDS: PROTONIX IV SCH (21:24)
[2019-04-03] MEDS: PLETAL PO SCH (21:27)
[2019-04-04] MEDS: CARDIZEM PO SCH ×4 (03:08→20:27)
[2019-04-04] MEDS: TAMBOCOR PO SCH (08:12)
[2019-04-04] MEDS: ZYRTEC PO SCH (08:12)
[2019-04-04] MEDS: PLETAL PO SCH ×2 (08:12→20:27)
[2019-04-04] MEDS: LOVENOX SUBQ SCH (08:13)
[2019-04-04] MEDS: FLONASE NAS SCH (08:13)
[2019-04-04] MEDS: ASPIRIN PO SCH (08:13)
--- NOTE | 2019-04-04 09:32 | EKG Report ---
Test Performed on : 04/04/2019 06:26:35 AM Test Reason : cp Blood Pressure : / mmHG Vent. Rate : 106 BPM Atrial Rate : 101 BPM P-R Int : 000 ms QRS Dur : 076 ms QT Int : 356 ms P-R-T Axes : 000 035 094 degrees QTc Int : 472 ms Undetermined rhythm Nonspecific T wave abnormality Abnormal ECG When compared with ECG of 02-APR-2019 20:35, (Unconfirmed) Current undetermined rhythm precludes rhythm comparison, needs review Unconfirmed Result
--- NOTE | 2019-04-04 13:51 | PROGRESS NOTE ---
DATE: 04/04/2019 SUBJECTIVE: Patient says she is feeling better overall than she did when she first came in. She has had the MAT. She is eating chips and drinking Coke presently and seems to be in pleasant spirits. OBJECTIVE: Afebrile, pulse 92, respirations 17, blood pressure 95/61, O2 saturation 100% on 2.5 L.General: Frail-appearing patient with COPD. CV: Irregularly irregular consistent with MAT. Lungs: Distant breath sounds. CTA. Abdomen: Nontender. Active bowel sounds. She did have a bowel movement she says. Extremities: No calf tenderness, cords or edema. Neurologic: Nonfocal. Moves all extremities well. LABORATORY DATA: Reviewed from yesterday is good. ASSESSMENT: 1. MAT with history of paroxysmal atrial fibrillation, not on anticoagulation due to prior history of gastrointestinal bleeds. 2. COPD. 3. Hypertension. 4. PAD. PLAN: She is on Cardizem and flecainide per Cardiology. She has DuoNeb ordered as needed. She is on aspirin 81 mg daily along with Pletal. She is on prophylactic doses of Lovenox. She is on cetirizine for her sinus drainage. We will continue to follow along with Cardiology in her care. cc: MD Angel Haley MD
--- NOTE | 2019-04-04 17:46 | PROGRESS NOTE ---
DATE: 04/04/2019 SUBJECTIVE: Patient relates feeling better. She still has some nonproductive cough but her shortness of breath has improved. There has been no chest pain. OBJECTIVE: Blood pressure 107/67, heart rate 92 to 110 with monitor showing sinus rhythm with frequent supraventricular ectopy. Oxygen saturation 100% on nasal cannula oxygen. There is no significant jugular venous distention. Auscultation of the chest reveals diminished breath sounds diffusely with scant rhonchi.Cardiac: Reveals a regular rate and rhythm with frequent extrasystole. No murmur or gallop could be appreciated. Extremities: Without edema. DIAGNOSTIC DATA: Review of ECGs for the past year obtained at [facility] show sinus rhythm, sinus rhythm with frequent supraventricular complexes, and irregular tachycardia episodes all of which appear to be multifocal atrial tachycardia. No atrial fibrillation was demonstrated. IMPRESSION: 1. Multifocal atrial tachycardia. 2. Severe chronic obstructive pulmonary disease. 3. Hypertension. 4. Hyperlipidemia. 5. Peripheral vascular disease. 6. Atherosclerotic carotid disease. 7. History of gastrointestinal blood loss in the past. Patient not felt to be a candidate for anticoagulation. RECOMMENDATIONS: 1. Discontinue flecainide. 2. Continue Cardizem as tolerated for means of rate control should she have further multifocal atrial tachycardia. 3. Aggressively treat underlying severe COPD. cc: MD Angel Agudelo MD
[2019-04-04] MEDS: SODIUM CHLORIDE 0.9% INJ SCH (20:27)
[2019-04-04] MEDS: PROTONIX IV SCH (20:27)
[2019-04-05] MEDS: CARDIZEM PO SCH ×4 (03:11→20:58)
[2019-04-05] MEDS: LOVENOX SUBQ SCH (08:46)
[2019-04-05] MEDS: PLETAL PO SCH ×2 (08:47→20:57)
[2019-04-05] MEDS: FLONASE NAS SCH (08:47)
[2019-04-05] MEDS: ZYRTEC PO SCH (08:47)
[2019-04-05] MEDS: ASPIRIN PO SCH (08:47)
[2019-04-05] MEDS ORDERED: CARDIZEM PO ONE ×2 (09:44→09:45)
[2019-04-05] MEDS ORDERED: XOPENEX NEB INH ONE (09:53)
[2019-04-05] MEDS ORDERED: NS NEB INH SCH ×2 (10:00→12:00)
[2019-04-05] MEDS ORDERED: LANOXIN IV ONE ×2 (10:08→12:14)
[2019-04-05] MEDS: ADVAIR 250/50 DISKUS INH SCH ×2 (10:27→21:58)
[2019-04-05] MEDS: SOLU-MEDROL IV SCH ×2 (10:34→18:08)
[2019-04-05] MEDS: ROCEPHIN 1 GM in NS 50 ML IV SCH (10:34)
--- NOTE | 2019-04-05 10:37 | Diag Imaging Result Doc PS360 ---
EXAM: CHEST-PORTABLE 04/05/2019 HISTORY: dyspnea TECHNIQUE: AP portable upright at 1027 COMMENT: The inspiration is less optimal than on 04/02/2019. There is retrocardiac opacity which was not present previously. There may be some interstitial fibrosis which was present previously. IMPRESSION: Atelectasis versus pneumonia left lower lobe superimposed on pulmonary fibrosis. Electronically signed by Sahil Villalba 04/05/2019 10:35 AM
--- NOTE | 2019-04-05 10:45 | PROGRESS NOTE ---
DATE: 04/05/2019 SUBJECTIVE: Called by nursing staff as her heart rate went up abruptly to 200 range. She has a history of MAT and this is followed by cardiology. She has been on Cardizem, been transferred out of the unit, and she is on oral Cardizem and was on flecainide. However, patient had discontinuation of the flecainide last evening per Dr. Schuster. She has had no chest pain but does feel short of breath. I am evaluating the patient presently in that regard. OBJECTIVE: Afebrile, pulse 201, respirations 30, blood pressure 112/70, O2 saturation on 2 L per nasal cannula at 92%. CV: Pronounced tachycardia. Irregular rhythm. Lungs: Distant breath sounds. Cannot rule out rare rhonchi or wheeze at the bases. Overall good air movement. Abdomen: Nontender, nondistended. Extremities: No calf tenderness, cords, or edema. Neurologic: Cranial nerves 2-12 are intact. She moves all extremities well. Answers questions appropriately. She has prominent COPD body habitus. Laboratory Data: From 2 days ago noted. Chest x-ray done on 04/02/2019 revealed pulmonary edema pattern. EKG currently shows what appears to me to be atrial fibrillation with tachycardia, pronounced. ASSESSMENT: 1. Severe tachycardia with history of multifocal atrial tachycardia and possible atrial fibrillation. 2. Advanced chronic obstructive pulmonary disease. 3. Hypertension. 4. Peripheral arterial disease. PLAN: The patient is receiving oral Cardizem. Dr. Schuster has ordered her to have digoxin 0.5 mg IV and I am going to move her to the ICU. The patient also received a Xopenex nebulizer treatment. She has DuoNebs ordered p.r.n. I would hold that for now unless absolutely necessary, due to the tachycardia. She remains on Pletal and aspirin, and she is on prophylactic doses of Lovenox. We will add Advair, add low-dose Solu-Medrol to see if that will help her lung situation. Repeat labs and chest x-ray. Currently transferred to the ICU for further care. cc: MD Angel Haley MD
[2019-04-05 10:54] LABS: AGAP 13; BUN 21 mg/dL (8-22); CHLORIDE 101 mmol/L (98-107); COSMO 278; CREATININE 0.8 mg/dL (0.5-0.9); ESTIMATED GFR > 60; GLUCOSE 120 mg/dL (70-104); POTASSIUM 4.1 mmol/L (3.5-5.1); SODIUM 137 mmol/L (136-145); TCO2 23 mmol/L (25-35)
[2019-04-05] MEDS ORDERED: MAGNESIUM SULFATE 1 GM/D5W 1 GM/100 ML IVPB IV ONE (11:08)
--- NOTE | 2019-04-05 11:29 | PROGRESS NOTE ---
DATE: 04/05/2019 SUBJECTIVE: The patient developed increased shortness of breath this morning along with significant tachycardia to over 200 beats per minute. Twelve lead EKG demonstrated multifocal atrial tachycardia. She has received additional diltiazem and digoxin. Heart rate has come down to just over 150 beats per minute, and she remains in multifocal atrial tachycardia. She has also received additional bronchodilator treatment with Xopenex. She relates feeling some improvement but still relates some shortness of breath. She has had some cough which has not been very productive. OBJECTIVE: Cardiac: Blood pressure 112/70, heart rate 164 and irregular with ECG monitor showing multifocal atrial tachycardia. There is no significant jugular venous distention. Chest: Auscultation of the chest reveals somewhat diminished breath sounds diffusely. Scant rhonchi appreciated. Cardiac: Reveals an irregular tachycardia without appreciable murmur or gallop. There is no evidence of peripheral edema. LABORATORY DATA: Sodium 137, potassium 4.1, chloride 101, carbon dioxide 23, BUN 21, creatinine 0.8. Glucose 120, magnesium 2.0. IMPRESSION: 1. Recurrent multifocal atrial tachycardia with significant tachycardia. 2. Severe chronic obstructive pulmonary disease with pulmonary fibrosis. 3. Hypertension. 4. Hyperlipidemia. 5. Peripheral vascular disease. 6. Atherosclerotic carotid disease. 7. History of gastrointestinal blood loss in the past. Patient is not felt to be a candidate for anticoagulation. RECOMMENDATIONS: 1. Continue increased dose of diltiazem. 2. Supplement with digoxin in effort to improve rate control. 3. Supplement magnesium. 4. Aggressively treat underlying severe COPD. cc: MD Angel Agudelo MD
[2019-04-05] MEDS ORDERED: CARDIZEM IV ONE (12:13)
[2019-04-05] MEDS: CARDIZEM 100 MG/NS 100 MG/100 ML IVPB IV SCH ×3 (12:23→20:11)
[2019-04-05 12:56] LABS: URINE SOURCE CATH
[2019-04-05 13:01] LABS: BILIRUBIN URINE NEGATIVE (NEGATIVE); BLOOD URINE NEGATIVE (NEGATIVE); COLOR YELLOW; GLUCOSE URINE NEGATIVE (NEGATIVE); KETONE URINE NEGATIVE (NEGATIVE); LEUKOCYTES URINE NEGATIVE (NEGATIVE); NITRITE URINE NEGATIVE (NEGATIVE); PROTEIN URINE 30 mg/dL (NEGATIVE); SP GRAVITY URINE 1.032; TURBIDITY URINE CLEAR (CLEAR); UROBILINOGEN URINE 3 mg/dL (NORMAL)
[2019-04-05 13:02] LABS: UR EPITHELIAL CELLS <10 /HPF (<10); URINE BACTERIA NEGATIVE /HPF; URINE RBC <10 /HPF (<10); URINE WBC <10 /HPF (<10)
[2019-04-05 13:17] LABS: AGAP 16; BUN 25 mg/dL (8-22); CALCIUM 9.5 mg/dL (8.8-10.2); CHLORIDE 103 mmol/L (98-107); COSMO 285; CREATININE 0.9 mg/dL (0.5-0.9); ESTIMATED GFR > 60; GLUCOSE 124 mg/dL (70-104); MAGNESIUM 1.8 mg/dL (1.5-2.7); PHOSPHORUS 1.6 mg/dL (2.7-4.5); POTASSIUM 4.3 mmol/L (3.5-5.1); SODIUM 140 mmol/L (136-145); TCO2 21 mmol/L (25-35)
[2019-04-05 13:42] LABS: BASO# 0.01 X1000 (0.0-0.2); BASO% 0.1 % (0.0-0.8); EOS# 0.03 X1000 (0.0-0.7); EOS% 0.4 % (0.0-10.0); HEMATOCRIT 46.9 % (37.0-47.0); HEMOGLOBIN 15.1 g/dL (12.0-16.0); LYMPH# 0.32 X1000 (1.2-3.4); LYMPH% 3.9 % (20.5-51.1); MCH 32.7 PG (27-31); MCHC 32.2 g/dL (33-37); MCV 101.5 FL (81-99); MONO# 0.48 X1000 (0.11-0.59); MONO% 5.8 % (1.7-9.3); MPV 10.3 FL (7.4-10.4); NEUT# 7.44 X1000 (1.4-6.5); NEUT% 89.8 % (42.2-75.2); PLT 270 X1000 (130-400); RBC 4.62 XMIL (4.2-5.4); RDW 15.1 % (11.5-14.5); WBC 8.28 X1000 (4.8-10.8)
[2019-04-05] MEDS ORDERED: LOPRESSOR IV SCH (14:30)
[2019-04-05 14:52] LABS: BANDS 4 % (0-1); LARGE PLATELETS 1+; LYMPHS 4 % (21-51); MONO 2 % (1-9); SEGS 90 % (42-75)
[2019-04-05] MEDS: SPIRIVA INH SCH (16:35)
[2019-04-05] MEDS: XOPENEX NEB INH SCH ×2 (18:20→21:58)
[2019-04-05] MEDS: PROTONIX IV SCH (20:56)
[2019-04-05] MEDS: SODIUM CHLORIDE 0.9% INJ SCH (20:56)
[2019-04-05] MEDS: LOPRESSOR IV PRN (22:28)
[2019-04-06] MEDS: SOLU-MEDROL IV SCH ×4 (02:10→18:29)
[2019-04-06] MEDS: CARDIZEM PO SCH ×4 (02:10→21:05)
[2019-04-06] MEDS: LOPRESSOR IV PRN ×5 (03:24→21:34)
[2019-04-06] MEDS: CARDIZEM 100 MG/NS 100 MG/100 ML IVPB IV SCH ×3 (03:48→18:16)
[2019-04-06 06:30] LABS: HEMATOCRIT 41.6 % (37.0-47.0); HEMOGLOBIN 13.2 g/dL (12.0-16.0); IMM GRAN# 0.02 X1000 (0.0-0.04); IMM GRAN% 0.3 % (0.0-0.5); LYMPH# 0.19 X1000 (1.2-3.4); LYMPH% 2.8 % (20.5-51.1); MCHC 31.7 g/dL (33-37); MONO# 0.32 X1000 (0.11-0.59); MONO% 4.7 % (1.7-9.3); MPV 10.8 FL (7.4-10.4); NEUT# 6.21 X1000 (1.4-6.5); NEUT% 92.2 % (42.2-75.2); PLT 262 X1000 (130-400); RBC 4.12 XMIL (4.2-5.4); RDW 14.2 % (11.5-14.5); WBC 6.74 X1000 (4.8-10.8)
[2019-04-06 07:00] LABS: CALCIUM 9.5 mg/dL (8.8-10.2); CREATININE 1.1 mg/dL (0.5-0.9); POTASSIUM 4.8 mmol/L (3.5-5.1)
--- NOTE | 2019-04-06 07:40 | EKG Report ---
Test Performed on : 04/05/2019 09:09:40 AM Test Reason : SVT Blood Pressure : / mmHG Vent. Rate : 205 BPM Atrial Rate : 180 BPM P-R Int : 000 ms QRS Dur : 062 ms QT Int : 206 ms P-R-T Axes : 000 043 142 degrees QTc Int : 380 ms Critical Test Result: High HR Atrial fibrillation. with rapid ventricular response. Marked ST abnormality, possible lateral subendocardial injury Abnormal ECG When compared with ECG of 04-APR-2019 06:26, (Unconfirmed) Previous ECG has undetermined rhythm, needs review ST now depressed in Anterolateral leads Nonspecific T wave abnormality now evident in Inferior leads Confirmed by Cortez HERRERA, Mehdi Caputo ([id number]) on 04/07/2019 7:39:53 AM
[2019-04-06] MEDS: XOPENEX NEB INH SCH ×3 (08:16→21:15)
[2019-04-06] MEDS: ADVAIR 250/50 DISKUS INH SCH ×2 (08:16→21:16)
[2019-04-06] MEDS: SPIRIVA INH SCH (08:16)
[2019-04-06] MEDS: ROCEPHIN 1 GM in NS 50 ML IV SCH (09:38)
[2019-04-06] MEDS: PLETAL PO SCH ×2 (09:38→21:04)
[2019-04-06] MEDS: ZYRTEC PO SCH (09:39)
[2019-04-06] MEDS: ASPIRIN PO SCH (09:39)
[2019-04-06] MEDS: LOVENOX SUBQ SCH (09:39)
--- NOTE | 2019-04-06 13:48 | PROGRESS NOTE ---
DATE: 04/06/2019 SUBJECTIVE: Patient continues with some shortness of breath tendencies. She remains in sinus rhythm with frequent supraventricular ectopy with a tendency for multifocal atrial tachycardia. She relates that she had been on metoprolol prior to hospitalization and this has been stopped. OBJECTIVE: Vital Signs: Blood pressure 101/65 to 117/57, heart rate presently anywhere from 100 to 120 beats per minute with ECG showing sinus rhythm with frequent supraventricular ectopy and tendency for multifocal atrial tachycardia. There is no significant jugular venous distention. Auscultation of the chest reveals diminished breath sounds diffusely with few scant expiratory rhonchi. Cardiac exam reveals a irregular rate and rhythm without appreciable murmur or gallop. There is no evidence of peripheral edema. LABORATORY DATA: Includes a white blood cell count 6.74, hematocrit 41.6, hemoglobin 13.2. Sodium 139, potassium 4.8, chloride 105, carbon dioxide 20, BUN 38, creatinine 1.1, glucose 145. IMPRESSION: 1. Recurrent episodes of multifocal atrial tachycardia with significant tendency for tachycardia. 2. Severe chronic obstructive pulmonary disease with pulmonary fibrosis. 3. Hypertension. 4. Hyperlipidemia. 5. Peripheral vascular disease. 6. Atherosclerotic carotid disease. 7. History of gastrointestinal blood loss in the past. Patient not felt to be a candidate for anticoagulation. RECOMMENDATIONS: 1. Continue oral diltiazem. 2. Resume metoprolol. 3. Wean IV Cardizem. cc: MD Angel Agudelo MD
--- NOTE | 2019-04-06 14:52 | EKG Report ---
Test Performed on : 04/06/2019 2:01:01 PM Test Reason : tachycardia Blood Pressure : / mmHG Vent. Rate : 105 BPM Atrial Rate : 105 BPM P-R Int : 136 ms QRS Dur : 076 ms QT Int : 306 ms P-R-T Axes : 000 036 161 degrees QTc Int : 404 ms Sinus tachycardia. with premature atrial complexes. ST & T wave abnormality, consider lateral ischemia Abnormal ECG When compared with ECG of 05-APR-2019 09:09, (Unconfirmed) Sinus rhythm. has replaced Atrial fibrillation. Vent. rate has decreased BY [address] no longer depressed in Anterior leads Nonspecific T wave abnormality now evident in Anterior leads Confirmed by Mehdi Toro MD ([id number]) on 04/07/2019 7:41:27 AM
[2019-04-06] MEDS: FLONASE NAS SCH (16:07)
--- NOTE | 2019-04-06 20:23 | PROGRESS NOTE ---
DATE: 04/06/2019 SUBJECTIVE: 78-year-old white female was transferred to the ICU yesterday after the heart rate was 205. Apparently, she has atrial fibrillation in and out. Dr. Schuster was consulted. The patient is on Cardizem drip. Complains of shortness of breath. No chest pain. Thyroid function tests were normal. REVIEW OF SYSTEMS: Urine output is decreasing. The patient is eating breakfast this morning. Seen twice morning and the evening. PHYSICAL EXAMINATION: General: She is tachycardic. Hemodynamics were stable. Elderly female, cachectic, malnourished. Lungs: No respiratory distress. Poor air entry. Heart: Tachycardic. Abdomen: Belly is soft and nontender. Good bowel sounds. Neurologic: No obvious deficits. INVESTIGATIONS: CBC: White cell count 6.7, hematocrit 41, platelets 262,000. SMA-7: Sodium 139, potassium 4.8, chloride 109, BUN 38, creatinine 1.1. Urinalysis is clear. ASSESSMENT AND PLAN: 1. Recurrent episodes of paroxysmal atrial fibrillation with multifocal atrial tachycardia, chronic obstructive pulmonary disease, hypertension, hyperlipidemia, peripheral artery disease, peripheral vascular disease, history of gastrointestinal bleeding with recurrent falls, subclavian steal syndrome. Plan as per Dr. Schuster. Continue on intravenous Cardizem drip and metoprolol. Very judicious use of bronchodilators. Will use only Xopenex. Continue on intravenous Solu-Medrol and intravenous ceftriaxone. The patient is not a candidate for anticoagulation due to previous multiple falls and gastrointestinal bleeding. 2. Dysphagia. Recently seen by esophagogastroduodenoscopy by Dr. Villalba. 3. Deep venous thrombosis prophylaxis with Lovenox. 4. Peripheral artery disease, status post femoral-femoral bypass and on Pletal. Continue present treatment. 5. The patient was seen in the ICU. LEVEL OF DOCUMENTATION: 30. cc: Angel Mancera MD
[2019-04-06] MEDS: SODIUM CHLORIDE 0.9% INJ SCH (21:04)
[2019-04-06] MEDS: PROTONIX IV SCH (21:04)
[2019-04-06] MEDS: LOPRESSOR PO SCH (21:05)
[2019-04-07] MEDS: CARDIZEM 100 MG/NS 100 MG/100 ML IVPB IV SCH (00:32)
[2019-04-07] MEDS: CARDIZEM PO SCH ×2 (01:16→07:30)
[2019-04-07] MEDS: SOLU-MEDROL IV SCH (01:17)
[2019-04-07] MEDS: LOPRESSOR PO SCH ×2 (08:39→21:22)
[2019-04-07] MEDS: ZYRTEC PO SCH (08:39)
[2019-04-07] MEDS: LOVENOX SUBQ SCH (08:39)
[2019-04-07] MEDS: ASPIRIN PO SCH (08:39)
[2019-04-07] MEDS: FLONASE NAS SCH (08:39)
[2019-04-07] MEDS: PLETAL PO SCH ×2 (08:39→21:22)
[2019-04-07] MEDS: ROCEPHIN 1 GM in NS 50 ML IV SCH (11:07)
[2019-04-07] MEDS: SPIRIVA INH SCH (11:14)
[2019-04-07] MEDS: ADVAIR 250/50 DISKUS INH SCH ×2 (11:14→21:57)
[2019-04-07] MEDS: XOPENEX NEB INH SCH ×3 (11:14→21:58)
[2019-04-07] MEDS: LOPRESSOR IV PRN ×3 (17:52→23:15)
[2019-04-07] MEDS: PROTONIX IV SCH (21:22)
[2019-04-07] MEDS: SODIUM CHLORIDE 0.9% INJ SCH (21:22)
--- NOTE | 2019-04-07 21:26 | PROGRESS NOTE ---
DATE: 04/07/2019 SUBJECTIVE: The patient was showing MAT and patient is refusing to take the IV Lopressor, IV Cardizem and Xopenex and also she is refusing taking steroids. All these things contributing to her tachycardia. The patient is eating well. Almodovar was placed, and the patient was seen in the ICU as well as on the floor twice. OBJECTIVE: Vital signs: Temperature is 98 degrees, pulse 74. Vitals are stable. 3 L nasal cannula 96%. Chest: Bilateral air entry. Heart: Sounds are very erratic, distant. Belly is soft, nontender. No edema. LABORATORY DATA: None reported. ASSESSMENT AND PLAN: 1. Supraventricular tachycardia, which includes multifocal atrial tachycardia, refusing to take calcium channel blockers. She wants to go back on metoprolol 25 p.o. b.i.d. 2. Chronic obstructive pulmonary disease on Advair and Xopenex. 3. Acid reflux disease, esophagitis. IV Protonix 4. Chronic obstructive pulmonary disease exacerbation on IV ceftriaxone and Spiriva. Discontinue steroids. 5. Deep venous thrombosis prophylaxis with Lovenox. 6. Peripheral artery disease on aspirin and Pletal. Out of the bed with physical therapy. Please see the transfer orders to the floor and telemetry and discontinue Almodovar. LEVEL OF DOCUMENTATION: 35 minutes. cc: Angel Mancera MD MTDHoward
[2019-04-07] MEDS ORDERED: LOMOTIL PO PRN (22:44)
[2019-04-08] MEDS: ADVAIR 250/50 DISKUS INH SCH ×2 (08:05→22:43)
[2019-04-08] MEDS: SPIRIVA INH SCH (08:05)
[2019-04-08] MEDS: PLETAL PO SCH ×2 (08:35→21:32)
[2019-04-08] MEDS: LOPRESSOR PO SCH ×2 (08:35→21:30)
[2019-04-08] MEDS: FLONASE NAS SCH (08:35)
[2019-04-08] MEDS: ASPIRIN PO SCH (08:36)
[2019-04-08] MEDS: LOVENOX SUBQ SCH (08:36)
[2019-04-08] MEDS: ZYRTEC PO SCH (08:36)
[2019-04-08] MEDS: ROCEPHIN 1 GM in NS 50 ML IV SCH (09:33)
[2019-04-08] MEDS: LOPRESSOR IV PRN (09:48)
[2019-04-08] MEDS: XOPENEX NEB INH SCH ×3 (10:29→22:43)
[2019-04-08] MEDS: PROTONIX IV SCH (21:30)
[2019-04-08] MEDS: SODIUM CHLORIDE 0.9% INJ SCH (21:32)
--- NOTE | 2019-04-08 21:56 | PROGRESS NOTE ---
DATE: 04/08/2019 SUBJECTIVE: The patient is doing better and Imuran for ulcerative colitis. Patient was seen by Dr. Villalba. He will not even come to the hospital, and I could not get any access to medical records. Nevertheless, the patient is still in MAT with heart rate 100. Refusing Cardizem. She wants to maintain the same old medications. REVIEW OF SYSTEMS: Otherwise, none reported. OBJECTIVE: Temperature is 97 degrees. Vitals are stable.HEENT: Within normal limits. Neck: Supple. Chest: Poor air entry. Distant heart sounds. Belly is soft, nontender. LABORATORY DATA: None reported. ASSESSMENT AND PLAN: 1. Supraventricular tachycardia/multifocal atrial tachycardia. Continue on beta hao. Refusing to take Cardizem. 2. Chronic obstructive pulmonary disease. Discontinue steroids. Continue on Xopenex and Advair. 3. Deep venous thrombosis prophylaxis with Lovenox. 4. Peripheral arterial disease. On aspirin, Pletal. 5. Dysphagia due to esophagitis. On Protonix. 6. History of ulcerative colitis. We will start on Imuran. Out of the bed. If she is continues to be stable, we will discharge soon. LEVEL OF DOCUMENTATION: 25 minutes. cc: Angel Mancera MD MTDD
[2019-04-09] MEDS: ADVAIR 250/50 DISKUS INH SCH (07:59)
[2019-04-09] MEDS: SPIRIVA INH SCH (07:59)
[2019-04-09] MEDS: PLETAL PO SCH ×2 (08:51→21:02)
[2019-04-09] MEDS: LOPRESSOR PO SCH ×2 (08:51→21:15)
[2019-04-09] MEDS: LOVENOX SUBQ SCH (08:52)
[2019-04-09] MEDS: BUSPAR PO SCH ×2 (08:52→21:02)
[2019-04-09] MEDS: IMURAN PO SCH (08:52)
[2019-04-09] MEDS: ROCEPHIN 1 GM in NS 50 ML IV SCH ×2 (08:52→10:03)
[2019-04-09] MEDS: ASPIRIN PO SCH (08:52)
[2019-04-09] MEDS: ZYRTEC PO SCH (08:55)
[2019-04-09] MEDS: FLONASE NAS SCH (09:01)
[2019-04-09] MEDS: XOPENEX NEB INH SCH ×3 (12:09→22:50)
[2019-04-09] MEDS: LOPRESSOR IV PRN ×2 (12:41→16:45)
[2019-04-09] MEDS ORDERED: LOPRESSOR PO ONE (17:00)
[2019-04-09] MEDS: SODIUM CHLORIDE 0.9% INJ SCH (21:03)
[2019-04-09] MEDS: PROTONIX IV SCH (21:03)
--- NOTE | 2019-04-09 21:17 | PROGRESS NOTE ---
DATE: 04/09/2019 SUBJECTIVE: The patient is very anxious, refusing to take the Cardizem and she wants some anxiety pills and she does not want Xopenex, even though her condition is going in and out MAT and atrial fibrillation. Almodovar was taken out. She does want to take any steroids. Nevertheless, she wants to resume Imuran for her colitis. The nurses called me throughout the morning. Her heart rate is going in and out 160. Metoprolol was given. She was in telemetry showing some atrial fibrillation. Transferred to the [facility]. I saw the patient this evening again. Heart rate is 100. REVIEW OF SYSTEMS: None reported. OBJECTIVE: Temperature is 97.6 degrees, pulse 98. Vitals are stable. She is kyphotic.Chest: Poor air entry. Heart: Irregular heart sounds. Abdomen: Belly is soft, nontender. INVESTIGATIONS: None. ASSESSMENT AND PLAN: 1. Paroxysmal atrial fibrillation/multifocal atrial tachycardia. Consider beta blockers and calcium channel blockers. Not able to tolerate flecainide. Not a candidate for anticoagulation due to previous bleeding diathesis. 2. Chronic obstructive pulmonary disease. 3. Peripheral arterial disease. 4. Anxiety. Added on BuSpar and deep vein thrombosis prophylaxis with Lovenox. Continue with chronic obstructive pulmonary disease treatment. 5. Dysphagia due to esophagitis, IV Protonix and if she is stable, we will discharge in the morning and continue outpatient treatment. LEVEL OF DOCUMENTATION: 35 minutes. cc: Angel Mancera MD
[2019-04-10] MEDS: ADVAIR 250/50 DISKUS INH SCH ×2 (05:00→09:33)
--- NOTE | 2019-04-10 06:46 | EKG Report ---
Test Performed on : 04/09/2019 5:12:53 PM Test Reason : afib 160'S/MIN Blood Pressure : / mmHG Vent. Rate : 104 BPM Atrial Rate : 104 BPM P-R Int : 120 ms QRS Dur : 068 ms QT Int : 318 ms P-R-T Axes : 059 022 091 degrees QTc Int : 418 ms Sinus tachycardia. with premature atrial complexes. Abnormal QRS-T angle, consider primary T wave abnormality Abnormal ECG When compared with ECG of 06-APR-2019 14:01, ST no longer depressed in Lateral leads Nonspecific T wave abnormality no longer evident in Inferior leads T wave inversion no longer evident in Lateral leads Confirmed by Mehdi Toro MD ([id number]) on 04/10/2019 4:44:58 PM
[2019-04-10] MEDS: BUSPAR PO SCH (08:35)
[2019-04-10] MEDS: PLETAL PO SCH (08:35)
[2019-04-10] MEDS: LOVENOX SUBQ SCH (08:35)
[2019-04-10] MEDS: LOPRESSOR PO SCH (08:35)
[2019-04-10] MEDS: ASPIRIN PO SCH (08:35)
[2019-04-10] MEDS: FLONASE NAS SCH (08:36)
[2019-04-10] MEDS: ZYRTEC PO SCH (08:43)
[2019-04-10] MEDS: IMURAN PO SCH (09:16)
[2019-04-10] MEDS: XOPENEX NEB INH SCH (09:26)
[2019-04-10] MEDS: SPIRIVA INH SCH (09:33)
[2019-04-10] MEDS: ROCEPHIN 1 GM in NS 50 ML IV SCH (10:38)
[2019-04-10 11:08] VITALS: BP 130/71
--- NOTE | 2019-04-12 19:05 | DISCHARGE SUMMARY ---
ADMISSION DATE: 04/02/2019 DISCHARGE DATE: 04/10/2019 DISCHARGE DIAGNOSIS: Supraventricular tachycardia, intermittent atrial fibrillation/multifocal atrial fibrillation (MAT). SECONDARY DIAGNOSES: 1. Chronic obstructive pulmonary disease. 2. Hypertension. 3. Esophagitis with stricture dilated by Dr. Villalba. 4. Diarrhea due to ulcerative colitis. 5. Peripheral arterial disease. 6. Osteoporotic compression fracture, T12, T11, L1. 7. Right carotid endarterectomy. 8. Right hip replacement. 9. Femoral-femoral bypass graft with thrombectomy. 10. Status post open left common femoral superficial interposition bypass graft. 11. Subclavian steal syndrome. 12. Pulmonary function test March 10; FEV1 FVC ratio 52, due to FEV1 is 31% Significant chronic obstructive pulmonary disease and diffusion defect. BRIEF HISTORY: Please see the history and physical that was done by hospitalist. In brief, she is a 78-year-old white female who recently had intermittent dysphagia and diarrhea, under the care of Dr. Villalba. Currently, he did EGD and dilated the stricture of the esophagus. She went home and started having palpitations. Heart rate was erratic with 160 to 200. The patient was started on IV Cardizem drip and admitted to [facility]. On the following day, the patient came back into sinus rhythm. The patient was seen by Dr. Kenyon, started on flecainide and Cardizem. He thinks it is related to the office he MAT with underlying COPD. During the hospitalization, on the floor the patient developed significant shortness of breath and Dr. Spangler transferred her to the ICU. The patient had a Almodovar placed, started on IV Cardizem drip, IV steroids, Xopenex and IV antibiotics. Dr. Schuster was also consulted. Patient is noncompliant. She thinks the medicines are causing the tachycardia and she does not want to take the steroids, Xopenex and Cardizem. Patient remained in and out of atrial fibrillation along with MAT. The patient was extremely nervous started on BuSpar. The patient remained stable rhythm and she is not a candidate for anticoagulation due to previous GI bleeding and head injuries and falls. She could not tolerate flecainide. At this time, we will treat symptomatically with Cardizem and beta blockers. LABS: CBC: White cell count 6.7, hematocrit 41, platelets 262,000. Sodium 139, potassium 4.8, chloride 105, BUN 38, creatinine 1.1 glucose 145, calcium 9.5. Chest x-ray; COPD changes. DISCHARGE INSTRUCTIONS: Pneumococcal vaccine 13 was given 08/06/2017. Pletal 50 mg daily, Pletal 25 p.o. b.i.d., metoprolol 25 daily, DuoNeb 1 puff b.i.d. as needed, cetirizine 10 mg daily, ProAir HFA q.6h as needed, Flonase 1 spray in each nostril daily. Tessalon Perles as needed for cough, BuSpar 10 mg p.o. b.i.d., Prilosec 40 mg daily, Cardizem 120 daily, baby aspirin 81 mg daily for underlying PAD. Keep the LDL less than 70. Follow up in my office in 1 week. cc: MD Dr. Kostas Urbano
== END 2019-04-10 12:15 | disposition home or self-care (01) | DRG 309 ==
LOC: ED 19:20 → EDIPHOLD 22:45 → SUATTDRO 22:45 → 2N 04-03 12:14 → 3N 04-04 16:17 → ICU 04-05 11:49 → 4N 04-07 14:46 → 2N 04-09 17:41
PROVIDERS: ADMIT Internal Medicine; ATTEND Internal Medicine

== ENCOUNTER 2019-06-01 10:26 | Inpatient (IN) ==
--- NOTE | 2019-06-01 11:22 | PROVIDER DOCUMENTATION ---
HPI-General Adult - General Chief Complaint: Fall Stated Complaint: FALL Time Seen by Provider: 06/01/19 10:45 Source: patient Allergies/Adverse Reactions: Patient Allergies Allergy/AdvReac Type Severity Reaction Status Date / Time levofloxacin [From Levaquin] Allergy Unknown Unknown Verified 06/01/19 12:13 Sulfa (Sulfonamide Allergy Unknown Verified 06/01/19 12:13 Antibiotics) codeine AdvReac NAUSEA Verified 06/01/19 12:13 Home Medications: Home Medication List Medication Instructions Recorded Confirmed Last Taken Type Azathioprine 1 tab PO DAILY 06/25/16 06/01/19 05/30/19 07:00 History Cilostazol [Pletal] 25 mg PO BID 07/19/16 06/01/19 05/30/19 07:00 History Metoprolol Succinate E.r. [Toprol 25 mg PO BID 01/01/19 06/01/19 05/30/19 07:00 History Xl] Albuterol 2.5MG/Ipratrop 0.5MG 1 inh INH BID PRN 04/03/19 06/01/19 05/30/19 07:00 History [Duoneb (A & A)] Diltiazem HCl [Cardizem] 120 mg PO DAILY #30 tab 04/10/19 06/01/19 05/30/19 07:00 Rx Buspirone [Buspar] 15 mg PO BID 06/01/19 06/01/19 Unknown History Fluticasone/Salmet 100/50 INH 1 inh INH DAILY 06/01/19 06/01/19 Unknown History [Advair 100/50 Diskus] - History of Present Illness -Gen Adult Nature of Presenting Problems: [id number] presents with c/o fall today at home patient states that she did trip and fall and scooted to her phone to call for help patient does state she has pain to her right lung area on inspiration. She is noted to have to small abrasions to the left and right side of her eyes where her glasses are patient states that she was not wearing her glasses when she fell. Patient is c/o de la cruz does not know if she hit her head when she fell. Patient states she has a cough and dyspnea. Denies fever, chills, flu-like symptoms. Patient states she was in the ER on Saturday was tested for COVID 19 has not got results back yet. Patient states she has not been able to eat or drink anything since Saturday. Patient is disheveled in appearance. Location of Pain/Injury: reports: head, chest Pain Radiation: reports: no radiation Quality of Pain: reports: aching, sharp Severity: reports: moderate Onset/Duration: reports: 1 hour ago Timing: reports: still present Context/Activities at Onset: reports: none Modifying Factors: improves with: nothing Associated Symptoms: reports: anxiety, cough, loss of appetite, shortness of breath, pain with inspiration. denies: fever/chills Review of Systems - Adult - REVIEW OF SYSTEMS - ADULT Constitutional: reports: no symptoms reported. denies: chills, fever Eyes: reports: no symptoms reported Ears, Nose, Mouth & Throat: reports: no symptoms reported Cardiovascular: reports: chest pain (with inspiration) Respiratory: reports: chronic cough, cough, shortness of breath (with inspiration) Gastrointestinal: reports: no symptoms reported Genitourinary: reports: no symptoms reported Musculoskeletal: reports: no symptoms reported Integumentary: reports: no symptoms reported Neurological: reports: headache/migraines (since fall) Psychiatric: reports: anxiety Endocrine: reports: no symptoms reported Hematologic/Lymphatic: reports: no symptoms reported Allergic/Immunologic: reports: no symptoms reported All Other Systems: Reviewed and Negative Past History - Adult - PAST MEDICAL HISTORY-ADULT Review of Records: reports: Old Records Reviewed, Nursing Assessment Review, Medications Reviewed, Social history reviewed & non-contributory. Major Childhood Illnesses: reports: denies history Cardiovascular: reports: A-Fib, HTN Respiratory: reports: COPD, other (pulmonary edema) Gastrointestinal: reports: ulcer Obstetrical/Gynecological: reports: denies history Genitourinary: reports: denies history Musculoskeletal: reports: denies history Neurological: reports: denies history Psychiatric: reports: denies history Endocrine/Immune: reports: denies history Other Conditions: reports: denies history - PRIOR SURGERIES/PROCEDURES Surgical/Procedure History: reports: recent surgery (total hip replacement 4 wee ks ago), hysterectomy, bowel surgery (Ulcer surgery), orthopedic (extremity) (right rotator cuff ), joint replacement (right total hip replacement), other (right carotid, fem-pop) - IMMUNIZATION STATUS Childhood Immunizations: See Nurse Assessment Flu Vaccine: See Nurse Assessment - FAMILY HISTORY Family History: reviewed, not pertinent - SOCIAL HISTORY Smoking: non-smoker Substance Use: denies Living Situation: alone Physical Exam-General - PHYSICAL EXAM-ADULT Initial Vital Signs Reviewed: Yes - CONSTITUTIONAL General Appearance: alert, moderate distress - EYES Eyes: PERRL/EOMI, pale conjunctivae - HEAD, EARS, NOSE, MOUTH & THROAT HENMT: negative: normocephalic/atraumatic (abraisions noted to the left temporal lobes), moist mucous membranes (dry) - NECK Neck: full range of motion, C-spine tenderness - RESPIRATORY Respiratory: respiratory distress, decreased breath sounds, accessory muscle use , rhonchi, other (cough non productive) - CARDIOVASCULAR Cardiovascular: no edema, no gallop, no JVD, systolic murmur, irregularly irregular - GASTROINTESTINAL (ABDOMEN) Abdominal Exam: normal bowel sounds, non tender, soft - LYMPHATIC Lymphatic: no adenopathy - MUSCULOSKELETAL Extremity: non-tender, no pedal edema Peripheral Pulses: radial (R): 2+, radial (L): 2+, dorsalis-pedis (R): 2+, dorsalis-pedis (L): 2+ - SKIN Integumentary: ecchymosis, erythema, other (very thin and frail with multiple bruises all over bilateral arms and legs) - NEUROLOGIC Neurologic: grossly normal - PSYCHIATRIC Psych/Mental Status: normal mood/affect, normal thought process, oriented x 3 Progress - PLAN OF CARE/RESULTS Progress/Plan/Lab Results: Vital Signs - 8 hr 06/01/19 10:32 Temperature 97.6 F Pulse Rate 60 Respiratory Rate 20 Blood Pressure 91/66 O2 Sat by Pulse Oximetry 100 Orders Category Date Time Status NEWS Score 2-4:Order NEWS Lactate Series NOW Care 06/01/19 10:42 Active Nursing- Obtain EKG ONCE Care 06/01/19 11:[address] HEAD/C-SPINE W/O CONTRAST [CT] Stat Exams 06/01/19 11:08 Ordered cxr [CHEST-1 VIEW] [RAD] Stat Exams 06/01/19 10:44 Ordered CBC WITH DIFF [HEME] Stat Lab 06/01/19 11:08 Uncollected CK PROFILE [SP CHEM] Stat Lab 06/01/19 11:08 Uncollected COMPREHENSIVE METABOLIC PANEL [CHEM] Stat Lab 06/01/19 11:08 Uncollected LACTATE, PLASMA [CHEM] Q3H Lab 06/01/19 10:45 Uncollected LACTATE, PLASMA [CHEM] Q3H Lab 06/01/19 13:45 Uncollected LACTATE, PLASMA [CHEM] Q3H Lab 06/01/19 16:45 Uncollected PRO B-NATRIURETIC PEPTIDE Stat Lab 06/01/19 11:08 Uncollected PROTIME WITH INR [COAG] Stat Lab 06/01/19 11:08 Uncollected PTT [COAG] Stat Lab 06/01/19 11:08 Uncollected TROPONIN T HIGH SENSITIVITY Stat Lab 06/01/19 11:08 Uncollected EKG [EKG] Stat Ther 06/01/19 11:08 Ordered Patient agrees with POC rendered today. Result Diagrams: 06/01/19 11:42 06/01/19 11:42 - REASSESSMENT Reassessment #1 Time Reassessed: 14:50 Status: unchanged (paged Dr. Mancera for admission) - EKG 1 Time of EKG reading by physician:: 10:56 EKG Read and Signed by:: Pilo Moise EKG Interpretation (*Must complete 3 of following elements*): Abnormal Rate: 106 Rhythm: Afib RVR ST Wave: non-specific ST changes (non-specific t-wave abnormality) - XRAY 1 XRAY Study: Chest Impression: See EMR Report (FINDINGS: Heart size is within normal limits. There are apparent mild COPD changes similar to prior. There is stable left basilar granuloma from old granulomatous disease. The lungs appear clear of acute changes. There is no pleural effusion or pneumothorax identified. There are apparent old rib fracture deformities bilaterally similar to prior. There is no discrete acute rib fracture identified. If any further evaluation of ribs is desired, dedicated rib detail exam could be considered. The right humeral head is noted to be high riding similar to prior, which can be seen with chronic right rotator cuff tear. There is deformity of the distal head of the right clavicle which is not visible on the prior exam and may relate to acute fracture. There are postsurgical changes at the left shoulder. IMPRESSION: Mild COPD changes. No discrete acute cardiopulmonary disease. Apparent fracture of distal head of right clavicle. Electronically signed by Fermin Collier 06/01/2019 11:51 AM) - CT/MRI 1 CT Study: Cervical Spine, Head Impression: See EMR Report (FINDINGS: Head CT: Stable cerebral atrophy and periventricular white matter chronic microvascular ischemia. No intracranial mass or hemorrhage. The skull is intact. Stable severe chronic sinusitis of the left maxillary sinus. Other sinuses are clear. Cervical spine: Stable severe exaggerated lordosis of the cervical spine. No fracture or subluxation. Vertebral body heights are grossly preserved. Stable mild multilevel degenerative disc disease. IMPRESSION: 1. No acute intracranial injury. Stable chronic sinusitis of the left maxillary sinus. 2. No acute injury to the cervical spine. This exam was performed using automated exposure control, adjustment of mA or kV according to patient size, and/or use of iterative reconstruction technique Electronically signed by Matt Nelson 06/01/2019 2:07 PM) 2 CT Study: Lumbar Spine, Thorax Impression: See EMR Report (FINDINGS: Thoracic spine: There is accentuation of the thoracic kyphosis stable from prior. There are a couple of stable compression fractures in the upper and lower thoracic spine. There is a new compression fracture of T2 which was not present previously. However this is age-indeterminate and still could be very old. This is an osteoporotic fracture. There is no bony retropulsion. There is advanced COPD. There is significant infiltrate in the lower lobes, left greater than right. There is probably a trace left pleural effusion. The heart size is normal. Lumbar spine: There is a stable compression deformity of L1. Stable advanced disc degeneration at L3-L4 and L4-L5. No acute fractures. There is severe constipation. There is severe va scular disease. IMPRESSION: 1. New but age indeterminate T2 compression fracture without complication. Several other compression fractures are stable. 2. Massive constipation. 3. COPD. Bilateral infiltrates left greater than right consistent with pneumonia. This exam was performed using automated exposure control, adjustment of mA or kV according to patient size, and/or use of iterative reconstruction technique Electronically signed by Matt Nelson 06/01/2019 2:27 PM) - CONSULTS/PCP/HOSPITALIST Notification #1 *Consult/PCP/Hospitalist*: Dr. Mancera Time Discussed: 15:31 Consult Disposition: Admit Departure - Departure Date of Disposition Decision: 06/01/19 Time of Disposition Decision: 15:31 DIAGNOSIS: Atrial fibrillation with RVR Pneumonia Qualifiers: Pneumonia type: due to unspecified organism Laterality: bilateral Lung location: unspecified part of lung Qualified Code(s): J18.9 - Pneumonia, unspecified organism Fracture, clavicle closed, shaft Qualifiers: Encounter type: initial encounter Fracture alignment: nondisplaced Laterality: right Qualified Code(s): S42.024A - Nondisplaced fracture of shaft of right clavicle, initial encounter for closed fracture Compression fracture of T2 vertebra Qualifiers: Encounter type: initial encounter Qualified Code(s): S22.020A - Wedge compression fracture of second thoracic vertebra, initial encounter for closed fracture Fall Qualifiers: Encounter type: initial encounter Qualified Code(s): W19.XXXA - Unspecified fall, initial encounter Disposition: ADMITTED INPATIENT 09 Certified Medical Emergency: Emergent Condition: Serious Referrals and Follow-Ups: None,PCP [Primary Care Provider] - - Critical Care Note This patient required my direct & personal management of CC.: Yes Total Time (mins): 120 Critical Care Statement: This patient required my direct personal management to treat or rule out processes, the absence of which, could potentiallly result in sudden, clinically significant life or limb threatening deterioration. Attestation - Physician/ MEAGAN Attestation Patient care was provided by Advanced Practice Provider:: Yes Advanced Practice Provider:: Amy Domingo Advanced Practice Provider documentation review:: The Mid-level provider documentation, treatment plan and medical decision making was reviewed by the physician who agrees with all treatment and medical decision making by the P. The physician spent face to face time with patient:: No Advanced Practice Provider documentation review:: Supervising physician onsite and consulted in the evaluation and care of this patient. The physician did not have a face to face encounter with the patient.
--- NOTE | 2019-06-01 11:35 | EKG Report ---
Test Performed on : 06/01/2019 10:56:39 AM Test Reason : afib Blood Pressure : / mmHG Vent. Rate : 106 BPM Atrial Rate : 093 BPM P-R Int : 000 ms QRS Dur : 068 ms QT Int : 340 ms P-R-T Axes : 000 034 055 degrees QTc Int : 451 ms Atrial fibrillation. with rapid ventricular response. with premature ventricular or aberrantly conduc kelly complexes. Nonspecific T wave abnormality Abnormal ECG When compared with ECG of 30-MAY-2019 08:27, (Unconfirmed) Atrial fibrillation. has replaced Sinus rhythm. Criteria for Septal infarct are no longer present T wave inversion less evident in Lateral leads Unconfirmed Result
[2019-06-01] MEDS ORDERED: LANOXIN IV ONE ×2 (11:36→18:11)
--- NOTE | 2019-06-01 11:53 | Diag Imaging Result Doc PS360 ---
EXAM: CHEST-1 VIEW - 06/01/2019 HISTORY: fall / rib pain TECHNIQUE: Portable one view chest COMPARISON: 05/30/2019 FINDINGS: Heart size is within normal limits. There are apparent mild COPD changes similar to prior. There is stable left basilar granuloma from old granulomatous disease. The lungs appear clear of acute changes. There is no pleural effusion or pneumothorax identified. There are apparent old rib fracture deformities bilaterally similar to prior. There is no discrete acute rib fracture identified. If any further evaluation of ribs is desired, dedicated rib detail exam could be considered. The right humeral head is noted to be high riding similar to prior, which can be seen with chronic right rotator cuff tear. There is deformity of the distal head of the right clavicle which is not visible on the prior exam and may relate to acute fracture. There are postsurgical changes at the left shoulder. IMPRESSION: Mild COPD changes. No discrete acute cardiopulmonary disease. Apparent fracture of distal head of right clavicle. Electronically signed by Fermin Collier 06/01/2019 11:51 AM
[2019-06-01 11:55] LABS: BASO# 0.02 X1000 (0.0-0.2); BASO% 0.2 % (0.0-0.8); HEMOGLOBIN 12.4 g/dL (12.0-16.0); IMM GRAN# 0.06 X1000 (0.0-0.04); IMM GRAN% 0.6 % (0.0-0.5); LYMPH# 0.91 X1000 (1.2-3.4); LYMPH% 8.6 % (20.5-51.1); MCH 31.5 PG (27-31); MCHC 32.6 g/dL (33-37); MCV 96.4 FL (81-99); MONO# 0.36 X1000 (0.11-0.59); MONO% 3.4 % (1.7-9.3); MPV 9.2 FL (7.4-10.4); NEUT# 9.24 X1000 (1.4-6.5); NEUT% 87.2 % (42.2-75.2); PLT 284 X1000 (130-400); RBC 3.94 XMIL (4.2-5.4); RDW 15.6 % (11.5-14.5); WBC 10.59 X1000 (4.8-10.8)
[2019-06-01] MEDS ORDERED: NORCO-5 PO ONE (12:04)
[2019-06-01] MEDS ORDERED: ZOFRAN ODT PO ONE (12:05)
[2019-06-01 12:07] LABS: INR 1.14; PROTIME 14.8 Seconds (11.0-16.0)
[2019-06-01 12:08] LABS: PTT 26.6 Seconds (22.3-41.8)
[2019-06-01] MEDS ORDERED: CARDIZEM IV ONE ×2 (12:12→13:03)
[2019-06-01] MEDS ORDERED: NS 1,000 ML IV ONE ×2 (12:13→15:33)
[2019-06-01 12:35] LABS: ALB/GLOB RATIO 1.3; ALBUMIN 3.2 g/dL (3.5-5.0); CALCIUM 8.4 mg/dL (8.8-10.2); CREATININE 1.2 mg/dL (0.5-0.9); POTASSIUM 4.5 mmol/L (3.5-5.1); TOTAL BILIRUBIN 0.46 mg/dL (0.20-1.00); TOTAL PROTEIN 5.6 g/dL (6.3-8.3)
[2019-06-01] MEDS: CARDIZEM 100 MG/NS 100 MG/100 ML IVPB IV SCH (12:45)
[2019-06-01] MEDS ORDERED: LOPRESSOR ONE (12:55)
[2019-06-01] MEDS ORDERED: LOPRESSOR IV ONE (13:03)
[2019-06-01 13:06] LABS: CK INDEX 1.7 (0.0-2.5); CK-MB 9.19 ng/mL (0.0-5.0)
--- NOTE | 2019-06-01 14:10 | Diag Imaging Result Doc PS360 ---
CT HEAD/C-SPINE W/O CONTRAST - 06/01/2019 INDICATION: fall with de la cruz COMPARISON: 10/06/2018 FINDINGS: Head CT: Stable cerebral atrophy and periventricular white matter chronic microvascular ischemia. No intracranial mass or hemorrhage. The skull is intact. Stable severe chronic sinusitis of the left maxillary sinus. Other sinuses are clear. Cervical spine: Stable severe exaggerated lordosis of the cervical spine. No fracture or subluxation. Vertebral body heights are grossly preserved. Stable mild multilevel degenerative disc disease. IMPRESSION: 1. No acute intracranial injury. Stable chronic sinusitis of the left maxillary sinus. 2. No acute injury to the cervical spine. This exam was performed using automated exposure control, adjustment of mA or kV according to patient size, and/or use of iterative reconstruction technique Electronically signed by Matt Nelson 06/01/2019 2:07 PM
--- NOTE | 2019-06-01 14:30 | Diag Imaging Result Doc PS360 ---
CT T-SPINE/L-SPINE W/O CON - 06/01/2019 INDICATION: fall COMPARISON: 11/25/2017 FINDINGS: Thoracic spine: There is accentuation of the thoracic kyphosis stable from prior. There are a couple of stable compression fractures in the upper and lower thoracic spine. There is a new compression fracture of T2 which was not present previously. However this is age-indeterminate and still could be very old. This is an osteoporotic fracture. There is no bony retropulsion. There is advanced COPD. There is significant infiltrate in the lower lobes, left greater than right. There is probably a trace left pleural effusion. The heart size is normal. Lumbar spine: There is a stable compression deformity of L1. Stable advanced disc degeneration at L3-L4 and L4-L5. No acute fractures. There is severe constipation. There is severe vascular disease. IMPRESSION: 1. New but age indeterminate T2 compression fracture without complication. Several other compression fractures are stable. 2. Massive constipation. 3. COPD. Bilateral infiltrates left greater than right consistent with pneumonia. This exam was performed using automated exposure control, adjustment of mA or kV according to patient size, and/or use of iterative reconstruction technique Electronically signed by Matt Nelson 06/01/2019 2:27 PM
[2019-06-01] MEDS ORDERED: MORPHINE IV ONE ×2 (14:32→18:40)
[2019-06-01] MEDS ORDERED: ZOSYN 4.5 GM in NS 100 ML IV ONE (15:37)
[2019-06-01] MEDS ORDERED: ZITHROMAX 500 MG/NS 500 MG/250 ML IVPB IV ONE (15:37)
[2019-06-01] MEDS ORDERED: NS 250 ML IV ONE (17:28)
[2019-06-01] MEDS ORDERED: NORCO-5 PO PRN (17:29)
[2019-06-01] MEDS ORDERED: SODIUM CHLORIDE 0.9% INJ SCH (19:45)
[2019-06-01] MEDS ORDERED: PROTONIX IV SCH (20:00)
--- NOTE | 2019-06-01 20:09 | HISTORY AND PHYSICAL ---
CHIEF COMPLAINT: History of fall. HISTORY OF PRESENT ILLNESS: She is a 79-year-old white female seen a 2nd time. Initially was seen on Saturday. She had a trip and fall, sustained injury to the right side. There is a small nondisplaced distal right clavicle fracture. She had a workup done in the hospital. Management in the ER. The patient was tachycardic, hypotensive, rapid atrial fibrillation. She is in a lot of pain. Events noted over the emergency room. She had a COVID-19 test done on Saturday. CT chest showed some COPD changes, infiltrates. Basically admitted to the [facility] with rapid atrial fibrillation, hypotension, distal right clavicle fracture which is barely seen and T2 compression fracture. Also check the blood pressure on the right arm. Needs to control of heart rate. Not a candidate for anticoagulation. She is also hypotensive. Giving her IV fluids. Slightly dehydrated. Basically admitted to the hospital with atrial fibrillation, hypotension, dehydration, COPD exacerbation. 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 PAST SURGICAL HISTORY: Small bowel resection due to adhesions, cholecystectomy, right hip replacement, right carotid endarterectomy, fem-fem bypass surgery, left hip replacement, left common femoral, superficial femoral interposition graft in January by Dr. Guan. ALLERGIES: Codeine. Reported to Levaquin and sulfa. MEDICATIONS: Azathioprine 50 mg daily, Pletal 25 p.o. b.i.d., metoprolol 25 p.o. b.i.d., albuterol/Atrovent nebulizers q. b.i.d., Cardizem 120 daily, Advair 100/51 tab daily, BuSpar 15 mg p.o. b.i.d. SOCIAL HISTORY: She is single with 4 children. Smoking half a pack a day. No alcohol. No drug abuse. FAMILY HISTORY: Father at the age of 76, COPD. Mom of CAD at 76. HEALTH MAINTENANCE: Flu vaccine declined. She is up-to-date on Prevnar 07/31/2017. Last mammography July 2015, colonoscopy [address] Villalba. REVIEW OF SYSTEMS: HEENT: No headache. No vision problem. No neck pain. Pain in the right side, palpitations, cough, shortness of breath. GI: No nausea, vomiting, abdominal pain. : No history of hesitancy, frequency, dysuria. No swelling of legs. No joint pain. Neurologic: No focal symptoms or weakness. PHYSICAL EXAMINATION: VITAL SIGNS: Temperature is 98 degrees, tachycardic, hypotensive. GENERAL: Elderly female, cachectic. HEENT: Pupils equal, reactive to light. LUNGS: Poor air entry. HEART: Sounds are tachycardic. Regular. ABDOMEN: Belly is soft, nontender. Good bowel sounds. EXTREMITIES: No peripheral edema or cyanosis. NEUROLOGIC: No obvious neurological deficits. INVESTIGATIONS: White cell count 10, hematocrit 38, platelets 284,000. PT 14, INR 1.1, PTT 26. Sodium 132, potassium 4.5, BUN 37, creatinine 1.2. CK 539. Troponin is high. ProBNP is 6000. CT head and cervical spine: No acute intracranial injury. No acute injury to the cervical spine. EKG: Atrial fibrillation. Chest x-ray: COPD changes. Fracture of the distal head of the right clavicle. CT of thoracic and lumbar spine: New, indeterminate compression fracture. Massive constipation. COPD with bilateral infiltrates. ASSESSMENT AND PLAN: A 79-year-old white female admitted to the hospital with the following reason. 1. She is still on the rule out Coronavirus Disease 2019. 2. Recurrent falls due to steal syndrome. 3. Chronic obstructive pulmonary disease exacerbation. Continue on IV Zosyn and IV Zithromax. 4. Pain control. Ultracet as needed. 5. Chronic atrial fibrillation with basically rate control with Cardizem and metoprolol along with IV Cardizem drip. 6. Hypotension. The patient was resuscitated with crystalloids for azotemia. Continue gentle hydration. 7. Peripheral artery disease on Pletal. Slowly reconcile home medications for pain control. We will start her on tramadol. Patient is not a candidate for anticoagulation due to previous history of bleeding. 8. Ulcerative colitis. On azathioprine. 9. History of acid reflux disease on IV Protonix. I am going to speak to the son about deconditioning and probably palliative care consult down the line and the living will and follow up. cc: Angel Mancera MD
[2019-06-01] MEDS: ZOSYN 3.375 GM in NS 50 ML IV SCH (21:04)
[2019-06-01] MEDS: PLETAL PO SCH (21:53)
[2019-06-01] MEDS: ULTRACET 37.5MG/325MG PO PRN (21:53)
[2019-06-01] MEDS: BUSPAR PO SCH (21:53)
[2019-06-01 23:28] LABS: URINE SOURCE CATH
[2019-06-01 23:30] LABS: BILIRUBIN URINE NEGATIVE (NEGATIVE); BLOOD URINE TRACE (NEGATIVE); COLOR YELLOW; GLUCOSE URINE NEGATIVE (NEGATIVE); KETONE URINE 10 mg/dL (NEGATIVE); LEUKOCYTES URINE NEGATIVE (NEGATIVE); NITRITE URINE NEGATIVE (NEGATIVE); PROTEIN URINE 30 mg/dL (NEGATIVE); SP GRAVITY URINE 1.023; TURBIDITY URINE CLEAR (CLEAR); UROBILINOGEN URINE NORMAL (NORMAL)
[2019-06-01 23:32] LABS: UR EPITHELIAL CELLS <10 /HPF (<10); URINE BACTERIA NEGATIVE /HPF; URINE RBC <10 /HPF (<10); URINE WBC <10 /HPF (<10)
--- NOTE | 2019-06-02 00:19 | EKG Report ---
Test Performed on : 06/01/2019 11:57:20 PM Test Reason : CHEST PAIN Blood Pressure : / mmHG Vent. Rate : 183 BPM Atrial Rate : 187 BPM P-R Int : 000 ms QRS Dur : 076 ms QT Int : 248 ms P-R-T Axes : 000 044 238 degrees QTc Int : 432 ms Critical Test Result: High HR Atrial fibrillation. with rapid ventricular response. Nonspecific ST and T wave abnormality Abnormal ECG When compared with ECG of 01-JUN-2019 10:56, (Unconfirmed) Vent. rate has increased BY [address] now depressed in Inferior leads ST now depressed in Lateral leads Nonspecific T wave abnormality now evident in Inferior leads Confirmed by Delia HERRERA, Humza Trevizo ([id number]) on 06/03/2019 9:24:22 AM
[2019-06-02] MEDS: ZOSYN 3.375 GM in NS 50 ML IV SCH ×4 (02:18→15:33)
[2019-06-02] MEDS: CARDIZEM 100 MG/NS 100 MG/100 ML IVPB IV SCH ×2 (02:50→11:24)
[2019-06-02] MEDS: ULTRACET 37.5MG/325MG PO PRN (05:16)
[2019-06-02] MEDS ORDERED: ADVAIR 100/50 DISKUS INH SCH (07:30)
[2019-06-02] MEDS ORDERED: NORCO-5 PO PRN ×2 (08:34)
[2019-06-02] MEDS ORDERED: LANOXIN IV SCH (09:00)
[2019-06-02] MEDS: PLETAL PO SCH (09:01)
[2019-06-02] MEDS: BUSPAR PO SCH (09:01)
--- NOTE | 2019-06-02 13:40 | EKG Report ---
Test Performed on : 06/02/2019 1:28:26 PM Test Reason : afib Blood Pressure : / mmHG Vent. Rate : 133 BPM Atrial Rate : 125 BPM P-R Int : 000 ms QRS Dur : 068 ms QT Int : 154 ms P-R-T Axes : 000 026 189 degrees QTc Int : 229 ms Supraventricular tachycardia. with premature ventricular complexes. or fusion complexes Septal infarct , age undetermined ST & T wave abnormality, consider anterior ischemia Abnormal ECG When compared with ECG of 01-JUN-2019 23:57, (Unconfirmed) Sinus rhythm. has replaced Atrial fibrillation. Septal infarct is now present ST no longer depressed in Inferior leads Confirmed by Delia HERRERA, Humza Trevizo ([id number]) on 06/03/2019 9:25:10 AM
[2019-06-02] MEDS ORDERED: TAMBOCOR PO SCH (14:30)
[2019-06-02] MEDS ORDERED: LANOXIN IV ONE (15:00)
[2019-06-02] MEDS ORDERED: ZITHROMAX 500 MG/NS 500 MG/250 ML IVPB IV SCH (15:00)
[2019-06-02] MEDS ORDERED: NEO-SYNEPHRINE 50 MG in NS 250 ML IV SCH (15:00)
[2019-06-02] MEDS: CARDIZEM PO SCH ×2 (15:30→15:34)
--- NOTE | 2019-06-02 15:31 | CARDIOLOGY CONSULTATION ---
DATE: 06/02/2019 REQUESTED BY: Dr. Mancera. REASON FOR CONSULTATION: Atrial fibrillation, rapid response. CHIEF COMPLAINT: Pain in right shoulder, dyspnea. HISTORY: Mrs. Navarrete is an unfortunate 79-year-old female who presented to the ER first on the 29 of May with complaints of having suffered a fall and with complaints of increasing dyspnea. At that time, she had a chest x-ray and they put her on methylprednisolone and sent her home. Two days later, the patient fell and injured her right shoulder and then returned to the ER. Upon arrival, they did another chest x-ray that shows COPD changes, apparent fracture of the distal head of the right clavicle. They also did a CT scan of the spine that shows possible indeterminate fracture in the T2 level, massive constipation and bilateral infiltrates, COPD, the infiltrates are greater on the left than right consistent with pneumonia. The patient has been started on antibiotics. The patient has significant cough, significant dyspnea. She is very uncomfortable and not able to cooperate very much. She is very hard of hearing. Her situation since admission is that she has been in atrial fibrillation with rapid response. Her blood pressure is running low and they have cut down on the initial dose of Cardizem drip and right now her heart rate is much more difficult to control. PAST HISTORY: Positive for paroxysmal atrial fibrillation. She follows with Dr. Ann. She has history of peripheral vascular disease including carotid artery and she has also a subclavian steal syndrome on the left side. She has osteoporosis, acid reflux, peripheral vascular disease with intermittent claudication, GI bleeding, history of diastolic heart failure, osteoporosis, ulcerative colitis. SURGICAL HISTORY: She has had cholecystectomy, hip replacement, right carotid endarterectomy, a femoral to femoral bypass, left hip replacement and a left common femoral to superficial femoral graft. SOCIAL HISTORY: She is single. She is a . She used to be a heavy smoker in the past. ALLERGIES: Levaquin, sulfa drugs and codeine. HOME MEDICATIONS: Included albuterol, azathioprine, BuSpar 50 mg twice a day, Pletal 25 mg twice a day, diltiazem 120 mg daily, Advair inhaler, fluticasone/salmeterol 100/50 once a day, metoprolol succinate 25 twice a day. REVIEW OF SYSTEMS: Chronically short of breath, tendency to fall, very feeble, poor appetite. PHYSICAL EXAMINATION: Vital signs: Blood pressure 84/54, pulse 138, temperature is 98.3 degrees, respirations 24. Elderly, frail looking, in some painful distress, tachypneic. HEENT: No jugular venous distention. Chest: Diffusely diminished breath sounds. I do not hear wheezes. Heart: Sounds are rapid, irregularly irregular. Abdomen: Soft, nontender. No masses. No hepatomegaly. Extremities: Showed markedly diminished pulses bilaterally. Neurological: She is uncomfortable, hard of hearing. She seems to be cooperative at times. BLOOD WORK: Sodium 132, potassium 4.5, BUN 37, creatinine 1.2. ProBNP 6225. Troponin high sensitivity 45 ng/L. Hemoglobin 12.4. EKG done at 1:28 p.m. may be consistent with MAT. However, more than likely is just atrial fibrillation with rapid response, PVCs, rate is 133 beats per minute. IMPRESSION: 1. Patient presenting with possible pneumonia. CT scan of the spine shows infiltrates in both lungs, especially on the left. 2. Respiratory failure. This is probably hypoxemic. 3. Paroxysmal atrial fibrillation, rapid response. 4. Severe peripheral vascular disease including subclavian steal syndrome and previous femoral- femoral bypass on the right side. 5. Osteoporosis. 6. Fracture of the distal right clavicle. 7. Patient has chronic pain syndrome. 8. Advanced chronic obstructive pulmonary disease noted on CT of the spine/chest. RECOMMENDATION: At this time, we will continue to treat this patient with Cardizem, however, she will need ICU observation so we can administer IV Fortunato-Synephrine to help to bring her blood pressure back up and also allow us to control her severe pain with narcotics. We will discuss this with Dr. Mancera. The patient is a very poor candidate for anticoagulation long-term because of her frailty and tendency to fall. We will follow her accordingly. cc: MD Angel Torres MD [facility]
[2019-06-02 16:21] VITALS: BP 86/70
--- NOTE | 2019-06-05 20:00 | DISCHARGE SUMMARY ---
ADMISSION DATE: 06/01/2019 DISCHARGE DATE: 06/02/2019 DATE OF : 06/02/2019 at 1645. DISCHARGING DIAGNOSIS: 1. Acute cardiopulmonary arrest due to ventricular fibrillation with underlying atrial fibrillation associated with hypotension, dehydration. 2. Chronic obstructive pulmonary disease exacerbation with bilateral infiltrates. 3. Chronic anxiety. 4. Subclavian steal syndrome. 5. Fracture of T2 compression fracture. 6. Fracture of the distal clavicle. 7. Osteoporosis. 8. Acid reflux disease. 9. Peripheral vascular disease in both legs. 10. Ulcerative colitis. 11. Deconditioning. CONSULTS: Lino Asif MD. BRIEF HISTORY: Please see the history and physical that was done on 06/01/2019. In brief, she is a 79-year-old white female, chronically sick with multiple problems, tachycardic, COPD, PAD, atrial fibrillation, chronic pain, ulcerative colitis and diarrhea, basically came in after a fall, sustained injury to the back and the right clavicle. She is extremely tachycardic with rapid atrial fibrillation, hypotension. The patient was admitted in [facility] in guarded condition. The patient was started on IV fluids followed by Cardizem drip. She was also given digoxin. She continued to have pain requiring [place]. Dr. Asif was consulted. The patient was about to transfer to the ICU in vasopressors. I spoke to the patient's son a couple of times. He did express a living will DNR. The patient was made no CPR, no defibrillation, no intubated ventilator support. While attempt to transfer from [facility] to ICU, patient went to V-Fib and had a sudden cardiac demise. Family was notified. The cause of the was due to acute cardiopulmonary arrest due to V-Fib arrest with underlying comorbid conditions as above. Family has been accepted and also notified. Autopsy was not entertained. cc: Angel Mancera MD
== END 2019-06-02 16:45 | disposition expired | DRG 309 ==
LOC: ED 10:26 → 2N 18:16
PROVIDERS: ADMIT Internal Medicine; ATTEND Internal Medicine